=== PATIENT | male | born 1930 | race Hispanic/Latino ===

== ENCOUNTER 2017-06-13 18:01 | Inpatient (IN) | payer MEDICARE ==
[2017-06-13 18:01] VITALS: BMI 26.6
[2017-06-13] MEDS ORDERED: Ipratropium 0.02% Inhal Soln (0.5 mg/2.5 ml) UD IH STA (18:33)
[2017-06-13] MEDS ORDERED: Aspirin 325 mg EC Tablets PO STA (18:38)
[2017-06-13 18:45] LABS: BASO # 0.01 K/mm3 (0.0-2.0); BASO % 0.2 % (0.0-3.0); EOS # 0.2 (0.0-0.7); EOS % 4.3 % (1.5-5.0); GRAN # 3.12 (1.4-6.5); GRAN % 60.5 % (50.0-68.0); HEMATOCRIT 37.3 % (42.0-52.0); LYMPH # 1.2 (1.2-3.4); LYMPH % 24.1 % (22.0-35.0); MEAN CELL VOLUME 88.4 fl (80.0-105.0); MEAN CORPUSCULAR HEMOGLOBIN 29.4 pg (25.0-35.0); MEAN CORPUSCULAR HGB CONC 33.2 g/dl (31.0-37.0); MONO # 0.6 (0.1-0.6); MONO % 10.9 % (1.0-6.0); RED CELL DISTRIBUTION WIDTH 14.2 % (11.5-14.5); WHITE BLOOD COUNT 5.2 10^3/ul (4.5-11.0)
[2017-06-13 19:13] LABS: PARTIAL THROMBOPLASTIN TIME 48.3 Seconds (25.1-36.5)
[2017-06-13 19:17] LABS: INR 4.1 (0.93-1.08)
[2017-06-13 19:38] LABS: ALB/GLOB RATIO 1.2 (1.1-1.8); ALKALINE PHOSPHATASE 71 U/L (38-126); ALT/SGPT 27 U/L (7-56); AST/SGOT 20 U/L (17-59); BILIRUBIN,TOTAL 0.5 mg/dL (0.2-1.3); BLOOD UREA NITROGEN 25 mg/dL (7-21); CALCIUM 9.1 mg/dL (8.4-10.5); CARBON DIOXIDE 27 mmol/L (21-33); CHLORIDE 107 mmol/L (98-107); GFR AFRICAN-AMERICAN > 60; GLUCOSE,RANDOM 103 mg/dL (70-110); TOTAL PROTEIN 6.6 g/dL (5.8-8.3)
[2017-06-13 19:57] LABS: POTASSIUM 3.9 mmol/L (3.6-5.0); SODIUM 140 mmol/L (132-148)
[2017-06-13 20:00] LABS: TROPONIN I 0.13 ng/mL
[2017-06-13 20:11] LABS: PH,URINE 6.5 (4.7-8.0); URINE BILIRUBIN SMALL (NEGATIVE); URINE BLOOD LARGE (NEGATIVE); URINE GLUCOSE (UA) 250 mg/dL (NEGATIVE); URINE KETONE 15 mg/dL (NEGATIVE); URINE LEUKOCYTE ESTERASE MODERATE Leu/uL (NEGATIVE); URINE PROTEIN >=300 mg/dL (<30 mg/dL)
[2017-06-13 20:12] LABS: URINE APPEARANCE BLOODY (CLEAR); URINE COLOR DARK RED (YELLOW)
[2017-06-13 20:12] LABS: VENOUS BLOOD GAS BASE EXCESS 1.7 mmol/L (0.0-2.0); VENOUS BLOOD PH 7.35 (7.32-7.43)
[2017-06-13] MEDS ORDERED: Nitroglycerin 2% Ointment Foilpak UD TOP STA (20:23)
[2017-06-13 20:24] LABS: URINE RBC TNTC /hpf (0-2)
[2017-06-13 20:25] LABS: URINE BACTERIA MANY (NEG); URINE WBC TNTC /hpf (0-6)
--- NOTE | 2017-06-13 22:06 | ED PDOC ---
Arrival/HPI - General Chief Complaint: Chest Pain Time Seen by Provider: 06/13/17 18:33 Historian: Patient - History of Present Illness Narrative History of Present Illness (Text): 06/13/17 22:06 An 86 year old male, whose past medical history includes atrial fibrillation ( on Coumadin), hypertension, hyperlipidemia, and bph, presents to the emergency department complaining of chest pain that developed this morning. Patient reports left pectoral chest pain, non radiating. Reports to taking three Tylenol at home and called daughter this evening to bring him to the emergency department for worsening chest pain. Patient reports nausea and dizziness but denies vomiting or any other complaints at this time. Patient reports usual state of health about two weeks ago. PMD: Dr. Nazario Symptom Onset: Sudden Symptom Course: Unchanged Activities at Onset: Rest Context: Home Past Medical History - Provider Review Nursing Documentation Reviewed: Yes - Infectious Disease Hx of Infectious Diseases: None - Cardiac Hx Cardiac Disorders: Yes Hx Hypertension: Yes - Pulmonary Hx Respiratory Disorders: No - Neurological Hx Neurological Disorder: No - HEENT Hx HEENT Disorder: Yes Hx Cataracts: Yes (had surgery) Hx Deafness: Yes (bilat) Other/Comment: bilat hernia sx - Renal Hx Renal Disorder: No - Endocrine/Metabolic Hx Endocrine Disorders: No - Hematological/Oncological Hx Blood Disorders: No - Integumentary Hx Dermatological Disorder: No - Musculoskeletal/Rheumatological Hx Musculoskeletal Disorders: No Hx Falls: No - Gastrointestinal Hx Gastrointestinal Disorders: Yes Hx Gastroesophageal Reflux: Yes - Genitourinary/Gynecological Hx Genitourinary Disorders: Yes Hx Prostate Problems: Yes - Psychiatric Hx Psychophysiologic Disorder: No Hx Depression: No Hx Emotional Abuse: No Hx Physical Abuse: No Hx Substance Use: No - Surgical History Other/Comment: metal plate rt forearm 1959's - Suicidal Assessment Feels Threatened In Home Enviroment: No Family/Social History - Physician Review Nursing Documentation Reviewed: Yes Family/Social History: No Known Family HX Smoking Status: Never Smoked Hx Alcohol Use: No Hx Substance Use: No Hx Substance Use Treatment: No Allergies/Home Meds Allergies/Adverse Reactions: Allergies No Known Allergies Allergy (Verified 06/13/17 18:11) Home Medications: Home Meds Medication Instructions Recorded Confirmed Simvastatin 20 mg PO DAILY 05/02/12 09/10/16 Tamsulosin [Flomax] 0.4 mg PO DAILY 09/10/16 09/10/16 Cephalexin 250 mg PO TID 09/19/16 09/19/16 Digoxin (RENAL USE) 0.125 mg PO DAILY 09/19/16 09/19/16 Eliquis 5 mg pe PO BID 09/19/16 09/19/16 Lisinopril 20 mg PO DAILY 09/19/16 09/19/16 Metoprolol 100 mg PO BID 09/19/16 09/19/16 diltiaZEM CD 120 mg PO DAILY 09/19/16 09/19/16 metroNIDAZOLE 250 mg PO TID 09/19/16 09/19/16 Review of Systems - Physician Review All systems were reviewed & negative as marked: Yes - Review of Systems Constitutional: Normal Eyes: Normal ENT: Normal Respiratory: Normal Cardiovascular: Chest Pain Gastrointestinal: Nausea. absent: Vomiting Genitourinary Male: Normal Musculoskeletal: Normal Skin: Normal Neurological: Dizziness Endocrine: Normal Hemo/Lymphatic: Normal Psychiatric: Normal Physical Exam Vital Signs Reviewed: Yes Vital Signs Temp Pulse Pulse Resp BP BP Pulse Ox 06/13/17 22:57 78 16 135/93 H 99 06/13/17 22:44 80 17 130/78 98 06/13/17 21:00 70 17 98 06/13/17 19:15 74 17 145/80 98 06/13/17 19:03 71 117/66 06/13/17 18:17 98.0 F 76 17 148/79 98 Temperature: Afebrile Blood Pressure: Normal Pulse: Regular Respiratory Rate: Normal Appearance: Positive for: Well-Appearing, Non-Toxic, Comfortable Pain Distress: None Mental Status: Positive for: Alert and Oriented X 3 - Systems Exam Head: Present: Atraumatic, Normocephalic Pupils: Present: PERRL Extroacular Muscles: Present: EOMI Conjunctiva: Present: Normal Mouth: Present: Moist Mucous Membranes Neck: Present: Normal Range of Motion Respiratory/Chest: Present: Clear to Auscultation, Good Air Exchange. No: Respiratory Distress, Accessory Muscle Use Cardiovascular: Present: Regular Rate and Rhythm, Normal S1, S2. No: Murmurs Abdomen: Present: Normal Bowel Sounds. No: Tenderness, Distention, Peritoneal Signs Back: Present: Normal Inspection Upper Extremity: Present: Normal Inspection. No: Cyanosis, Edema Lower Extremity: Present: Normal Inspection. No: Edema Neurological: Present: GCS=15, CN II-XII Intact, Speech Normal Skin: Present: Warm, Dry, Normal Color. No: Rashes Psychiatric: Present: Alert, Oriented x 3, Normal Insight, Normal Concentration Medical Decision Making ED Course and Treatment: 06/13/17 22:04 Impression: An 86 year old male with chest pain. Plan: -- EKG -- chest xray -- labs -- Urinalysis -- Zofran, Ecotrin, Atrovent -- Reassess and disposition Prior Visits: Notes and results from previous visits were reviewed. Patient last reported to the emergency department on 09/10/16 for evaluation of midsternal chest pain and lower abdominal discomfort. Progress Notes: EKG: Ordered, reviewed, and independently interpreted the EKG. Rate : ventricular response of 83 BPM Rhythm : a fib Interpretation : right bundle branch block Chest xray: unremarkable, no active airway disease, interpreted by me. Spoke with Dr. Nazario , who agrees with plan to admit patient to telemetry. - Lab Interpretations Microbiology Results: Microbiology Results 06/13/17 19:40 Blood-Venous Blood Culture - Preliminary NO GROWTH AFTER 48 HOURS 06/13/17 19:10 Blood-Venous Blood Culture - Preliminary NO GROWTH AFTER 48 HOURS 06/13/17 19:40 Urine,Clean Catch Urine Culture - Preliminary Gram Positive Cocci Lab Results: 06/13/17 18:30 06/13/17 18:30 Lab Results 06/13/17 19:45: pO2 24 L, VBG pH 7.35, VBG pCO2 51.0, VBG HCO3 28.2 H, VBG Total CO2 29.8 H, VBG O2 Sat (Calc) 41.9, VBG Base Excess 1.7, VBG Potassium 4.3 , Glucose 102, Lactate 1.2, FiO2 21.0, Sodium 139.0, Chloride 107.0, Venous Blood Potassium 4.3 06/13/17 19:40: Urine Color Dark red, Urine Appearance Bloody, Urine pH 6.5, Ur Specific [place] 1.020, Urine Protein >=300 H, Urine Glucose (UA) 250 H, Urine Ketones 15 H, Urine Blood Large H, Urine Nitrate Positive H, Urine Bilirubin Small H, Urine Urobilinogen 2.0 H, Ur Leukocyte Esterase Moderate H, Urine RBC Tntc, Urine WBC Tntc, Urine Bacteria Many 06/13/17 18:30: Digoxin 1.0 06/13/17 18:30: Sodium 140, Potassium 3.9, Chloride 107, Carbon Dioxide 27, Anion Gap 10, BUN 25 H, Creatinine 1.3, Est GFR ( Amer) > 60, Est GFR ( Non-Af Amer) 53, Random Glucose 103, Calcium 9.1, Total Bilirubin 0.5, AST 20, ALT 27, Alkaline Phosphatase 71, Lactate Dehydrogenase 400, Total Creatine Kinase 46, Troponin I 0.13 H* D, NT-Pro-B Natriuret Pep 890 H, Total Protein 6.6 , Albumin 3.6, Globulin 3.0, Albumin/Globulin Ratio 1.2 06/13/17 18:30: PT 46.0 H, INR 4.10 H*, APTT 48.3 H 06/13/17 18:30: WBC 5.2 D, RBC 4.22, Hgb 12.4 L, Hct 37.3 L, MCV 88.4, MCH 29.4 , MCHC 33.2, RDW 14.2, Plt Count 180, MPV 10.0, Gran % 60.5, Lymph % (Auto) 24.1 , [place] % (Auto) 10.9 H, Eos % (Auto) 4.3, Baso % (Auto) 0.2, Gran # 3.12, Lymph # 1.2, [place] # 0.6, Eos # 0.2, Baso # 0.01 I have reviewed the lab results: Yes - RAD Interpretation Radiology Orders: 06/13/17 18:33 CHEST PORTABLE [RAD] Stat - EKG Interpretation Interpreted by ED Physician: Yes Type: 12 lead EKG - Medication Orders Current Medication Orders: Acetaminophen (Tylenol 325mg Tab) 650 mg PO Q4H PRN PRN Reason: Headache Last Admin: 06/15/17 20:37 Dose: 650 mg Re-Assess: MAR Pain/Vitals Document 06/15/17 21:37 KTR (Rec: 06/16/17 07:55 KTR [facility] [id number] Pain Reassessment Is This A Pain ReAssessment? Yes Sleep Is patient sleeping during reassessment? Yes Atorvastatin Calcium (Lipitor) 20 mg PO DIN SUE Last Admin: 06/15/17 17:25 Dose: 20 mg Digoxin (Lanoxin) 0.125 mg PO 1400 [facility] Last Admin: 06/15/17 13:25 Dose: 0.125 mg MAR Apical Pulse Rate Document 06/15/17 13:25 KMS (Rec: 06/15/17 13:25 KMS [place] [id number]) Apical Pulse Rate Apical Pulse Rate (60-90 beats/min) 78 Diltiazem HCl (Cardizem Cd) 120 mg PO DAILY [facility] Last Admin: 06/15/17 10:19 Dose: 120 mg MAR Pulse and Blood Pressure Document 06/15/17 10:19 KMS (Rec: 06/15/17 10:19 KMS [place] [id number]) Pulse Pulse Rate (60-90) 83 Blood Pressure Blood Pressure (100/60-150/90) 114/73 Lisinopril (Zestril) 20 mg PO DAILY [facility] Last Admin: 06/15/17 10:18 Dose: 20 mg MAR Pulse and Blood Pressure Document 06/15/17 10:18 KMS (Rec: 06/15/17 10:19 KMS [place] [id number]) Pulse Pulse Rate (60-90) 83 Blood Pressure Blood Pressure (100/60-150/90) 114/73 Metoprolol Tartrate (Lopressor) 100 mg PO BID [facility] Last Admin: 06/15/17 17:11 Dose: 100 mg MAR Pulse and Blood Pressure Document 06/15/17 17:11 KMS (Rec: 06/15/17 17:15 KMS [place] [id number]) Pulse Pulse Rate (60-90) 79 Blood Pressure Blood Pressure (100/60-150/90) 131/79 Nitroglycerin (Nitro-Bid 2% Oint) 1 ea TOP Q6 [facility] Last Admin: 06/16/17 07:49 Dose: Not Given Non-Admin Reason: BP Parameters Not Met Pantoprazole Sodium (Protonix Ec Tab) 40 mg PO 0600 [facility] Last Admin: 06/16/17 05:02 Dose: Not Given Non-Admin Reason: NPO Trimethoprim/Sulfamethoxazole (Bactrim Ds Tab) 1 tab PO BID [facility] PRN Reason: Protocol Last Admin: 06/15/17 17:25 Dose: 1 tab Discontinued Medications Acetaminophen (Tylenol 325mg Tab) 650 mg PO ONCE ONE Stop: 06/14/17 02:42 Last Admin: 06/14/17 02:56 Dose: 650 mg MAR Pain/Vitals Document 06/14/17 02:56 TTC (Rec: 06/14/17 02:57 [facility] [id number]) Pain Reassessment Is This A Pain ReAssessment? No Sleep Is patient sleeping during reassessment? Yes Aspirin (Ecotrin) 325 mg PO STAT STA Stop: 06/13/17 18:39 Last Admin: 06/13/17 19:14 Dose: 325 mg Ceftriaxone Sodium (Rocephin 1 Gram Ivpb) 1 gm in 100 mls @ 200 mls/hr IVPB STAT STA PRN Reason: Protocol Stop: 06/14/17 03:15 Last Admin: 06/14/17 03:15 Dose: 200 mls/hr eMAR Start Stop Document 06/14/17 03:15 TTC (Rec: 06/14/17 06:03 [facility] [id number]) Intravenous Solution Start Date 06/14/17 Start Time 03:15 End Date 06/14/17 End time 04:15 Total Infusion Time 60 Ipratropium [place] (Atrovent) 0.5 mg IH STAT STA Stop: 06/13/17 18:34 Last Admin: 06/13/17 19:14 Dose: 0.5 mg Nitroglycerin (Nitro-Bid 2% Oint) 1 ea TOP STAT STA Stop: 06/13/17 20:24 Last Admin: 06/13/17 22:40 Dose: Nitroglycerin (Nitrostat Sl Tab) 0.4 mg SL Q5M PRN PRN Reason: chest pain Stop: 06/14/17 04:26 Ondansetron HCl (Zofran Inj) 4 mg IVP STAT STA Stop: 06/13/17 19:27 Last Admin: 06/13/17 19:51 Dose: 4 mg IVP Administration Document 06/13/17 19:51 SF (Rec: 06/13/17 19:51 SF [facility] [id number]) Charges for Administration # of IVP Administrations 1 - Scribe Statement The provider has reviewed the documentation as recorded by the Aissatou Almanza Provider Scribe Attestation: All medical record entries made by the Scribe were at my direction and personally dictated by me. I have reviewed the chart and agree that the record accurately reflects my personal performance of the history, physical exam, medical decision making, and the department course for this patient. I have also personally directed, reviewed, and agree with the discharge instructions and disposition. Disposition/Present on Arrival - Present on Arrival Any Indicators Present on Arrival: No History of DVT/PE: No History of Uncontrolled Diabetes: No Urinary Catheter: Yes (inserted in ed) History of Decub. Ulcer: No History Surgical Site Infection Following: None - Disposition Have Diagnosis and Disposition been Completed?: Yes Diagnosis: Chest pain Disposition: HOSPITALIZED Disposition Time: 21:35 Patient Plan: Admission Condition: FAIR
--- NOTE | 2017-06-13 23:51 | CP.PCM.CON ---
<David Encinas - Last Filed: 06/13/17 23:20> History of Present Illness - History of Present Illness History of Present Illness: David Encinas DO PGY1 - ICU Consult Note for Dr. Linares Consultation for NSTEMI 86 yo M with PMH of atrial fibrillation, hypertension, hyperlipidemia, depression, NSTEMI, and BPH, who initially presented to the ER complaining of chest pain. His pain started yesterday, while sitting at home. Pain started gradually, in left chest, got progressively worse, did not radiate, associated with naunausea, described as deep aching; no particular exacerbating or remitting factors. Pain improved slightly after receiving some treatment in the ER. He reports that he has had this pain before, which he was treated for in the hospital "a couple years ago". He denies vomiting, SOB, dyspnea on exertion , neck pain, arm pain, headache, palpitations, cough. On chart review, patient was admitted 9 months ago and was found to have new onset atrial fibrillation and was treated for NSTEMI PMH: As above PSH: ORIF R wrist Soc: Nonsmoker; Drinks 2-4 drinks weekly, prior history of alcohol abuse; denies illicits FHx: Patient does not recall Home meds: Patient did not recall the names of the medicines he is on, but when prompted about warfarin, he did confirm that, though did not recall the dose or frequency. All: NKDA ROS: 12 point ROS negative except as in HPI Past Patient History - Infectious Disease Hx of Infectious Diseases: None - Past Social History Smoking Status: Never Smoked - CARDIAC Hx Cardiac Disorders: Yes Hx Hypertension: Yes - PULMONARY Hx Respiratory Disorders: No - NEUROLOGICAL Hx Neurological Disorder: No - HEENT Hx HEENT Problems: Yes Hx Cataracts: Yes (had surgery) Hx Deafness: Yes (bilat) Other/Comment: bilat hernia sx - RENAL Hx Chronic Kidney Disease: No - ENDOCRINE/METABOLIC Hx Endocrine Disorders: No - HEMATOLOGICAL/ONCOLOGICAL Hx Blood Disorders: No - INTEGUMENTARY Hx Dermatological Problems: No - MUSCULOSKELETAL/RHEUMATOLOGICAL Hx Musculoskeletal Disorders: No Hx Falls: No - GASTROINTESTINAL Hx Gastrointestinal Disorders: Yes Hx Gastroesophageal Reflux: Yes - GENITOURINARY/GYNECOLOGICAL Hx Genitourinary Disorders: Yes Hx Prostate Problems: Yes - PSYCHIATRIC Hx Psychophysiologic Disorder: No Hx Depression: No Hx Emotional Abuse: No Hx Physical Abuse: No Hx Substance Use: No - SURGICAL HISTORY Other/Comment: metal plate rt forearm 1960's Meds Allergies/Adverse Reactions: Allergies Allergy/AdvReac Type Severity Reaction Status Date / Time No Known Allergies Allergy Verified 06/13/17 18:11 Physical Exam - Constitutional Appears: Non-toxic, No Acute Distress, Chronically Ill - Head Exam Head Exam: ATRAUMATIC, NORMOCEPHALIC - Eye Exam Eye Exam: EOMI, Normal appearance - ENT Exam ENT Exam: Mucous Membranes Moist - Neck Exam Neck exam: Positive for: Normal Inspection - Respiratory Exam Respiratory Exam: Clear to Auscultation Bilateral, NORMAL BREATHING PATTERN - Cardiovascular Exam Cardiovascular Exam: Irregular Rhythm, +S1, +S2. absent: Bradycardia, Tachycardia, JVD Additional comments: No point tenderness on chest wall - GI/Abdominal Exam GI & Abdominal Exam: Normal Bowel Sounds, Soft. absent: Tenderness - Extremities Exam Extremities exam: Positive for: normal capillary refill, pedal pulses present. Negative for: calf tenderness, pedal edema - Neurological Exam Neurological exam: Alert, Oriented x3 - Psychiatric Exam Psychiatric exam: Normal Affect, Normal Mood - Skin Skin Exam: Dry, Intact Results - Vital Signs Recent Vital Signs: Last Vital Signs Temp 98.0 F 06/13/17 18:17 Pulse 78 06/13/17 22:57 Resp 16 06/13/17 22:57 BP 135/93 H 06/13/17 22:57 Pulse Ox 99 06/13/17 22:57 - Labs Result Diagrams: 06/13/17 18:30 06/13/17 18:30 Assessment & Plan - Assessment and Plan (Free Text) Assessment: 86 yo M with PMH of atrial fibrillation (rate controlled, on coumadin), hypertension, hyperlipidemia, depression, NSTEMI, and BPH, who initially presented to the ER complaining of chest pain. Noted to have positive troponin in ER, without EKG changes compared to his baseline, likely NSTEMI. Patient discussed with Dr. Ross, cardiology technology applications teacher. Patient is currently hemodynamically stable, with improvement in chest pain. Recommend admission to telemetry, with medical management per primary and credit risk review officer. INR elevated, likely supratherapeutic on coumadin, though unable to confirm patient's prescribed dose at this time. Recommend serial troponins, repeat EKG, resume beta blockers, ACEi, statin. Patient also noted to have UTI on UA in ER; recommend broad spectrum antibiotic, with subsequent culture and sensitivity to narrow coverage. Resumed CCB for atrial fibrillation rate control. Please reconsult if patient's clinical status changes or worsens, requiring higher level of care Patient seen, discussed, and reviewed with attending. <Lori Linares - Last Filed: 06/14/17 05:52> Results - Vital Signs Recent Vital Signs: Last Vital Signs Temp 98.0 F 06/13/17 18:17 Pulse 78 06/13/17 22:57 Resp 18 06/14/17 00:42 BP 135/93 H 06/13/17 22:57 Pulse Ox 99 06/13/17 22:57 - Labs Result Diagrams: 06/14/17 03:30 06/14/17 03:30 Attending/Attestation - Attestation I have personally seen and examined this patient.: Yes I have fully participated in the care of the patient.: Yes I have reviewed all pertinent clinical information: Yes Notes (Text): 06/14/17 04:01 Patient was seen when he was in the ER . Discussed with , not . Agree with history, physical examination, assessment and plan.
[2017-06-14] MEDS ORDERED: cefTRIAXone 1 gm 1 GM/100 ML BAG IVPB STA (02:46)
[2017-06-14 04:08] LABS: BASO # 0.01 K/mm3 (0.0-2.0); BASO % 0.2 % (0.0-3.0); EOS # 0.3 (0.0-0.7); EOS % 6.5 % (1.5-5.0); GRAN # 2.29 (1.4-6.5); GRAN % 53.2 % (50.0-68.0); HEMATOCRIT 35.9 % (42.0-52.0); LYMPH # 1.2 (1.2-3.4); LYMPH % 27.1 % (22.0-35.0); MEAN CELL VOLUME 87.8 fl (80.0-105.0); MEAN CORPUSCULAR HEMOGLOBIN 28.9 pg (25.0-35.0); MEAN CORPUSCULAR HGB CONC 32.9 g/dl (31.0-37.0); MONO # 0.6 (0.1-0.6); RED CELL DISTRIBUTION WIDTH 14.2 % (11.5-14.5); WHITE BLOOD COUNT 4.3 10^3/ul (4.5-11.0)
[2017-06-14 04:15] LABS: TROPONIN I 0.09 ng/mL
[2017-06-14 04:17] LABS: ALB/GLOB RATIO 1.2 (1.1-1.8); ALKALINE PHOSPHATASE 56 U/L (38-126); ALT/SGPT 37 U/L (7-56); AST/SGOT 32 U/L (17-59); BILIRUBIN,TOTAL 0.5 mg/dL (0.2-1.3); BLOOD UREA NITROGEN 23 mg/dL (7-21); CALCIUM 8.8 mg/dL (8.4-10.5); CARBON DIOXIDE 27 mmol/L (21-33); CHLORIDE 107 mmol/L (98-107); GFR AFRICAN-AMERICAN > 60; GLUCOSE,RANDOM 92 mg/dL (70-110); SODIUM 139 mmol/L (132-148); TOTAL PROTEIN 6.2 g/dL (5.8-8.3)
[2017-06-14] MEDS: Pantoprazole 40 mg EC Tab PO SCH (06:03)
--- NOTE | 2017-06-14 08:21 | RAD ---
HISTORY: chest pain COMPARISON: Portable chest 09/10/2016. FINDINGS: LUNGS: No active pulmonary disease. Improved history volume is appreciated bilaterally. PLEURA: No significant pleural effusion identified, no pneumothorax apparent. CARDIOVASCULAR: Normal. OSSEOUS STRUCTURES: No significant abnormalities. VISUALIZED UPPER ABDOMEN: Normal. OTHER FINDINGS: None. IMPRESSION: No interval acute cardiopulmonary disease appreciated.
[2017-06-14] MEDS: diltiaZEM 120 mg/24 Hours CD Cap PO SCH (11:22)
--- NOTE | 2017-06-14 12:41 | PN ---
DATE: DAILY PROGRESS NOTE SUBJECTIVE: The patient is an 86-year-old male who was admitted yesterday with acute coronary syndrome, non-Q wave myocardial infarction, and chest pain. He is known to have history of atrial fibrillation, hypertension, hyperlipidemia, and benign prostatic hypertrophy. His troponin level on admission was 0.13, this morning it is down to 0.09. When seen today, he is resting comfortably; however, he does admit to some continued chest pain. It is constant, non-radiating over the left anterior chest. He denies shortness of breath and denies nausea. However, he was not hungry and did not eat much of his breakfast this morning. PHYSICAL EXAMINATION: LUNGS: His lungs are clear anteriorly. HEART: Irregularly irregular. LABORATORY DATA: Other laboratories revealed the white blood cell count to be 4.3 and hemoglobin and hematocrit are 11.8 and 35.9 respectively. Urine culture has been ordered as well as blood cultures, results are still pending. ASSESSMENT AND PLAN: As per the nurse staff, the patient did have a pause slightly longer than 2 seconds earlier today. His financial examiner, Dr. Cornejo and Dr. Marroquin are aware. At this point, I will begin intravenous Bactrim for his urinary tract infection and I will also start 1 inch of nitroglycerin paste for the continued chest pain. We will continue to follow the patient closely. Manuel Nazario MD
--- NOTE | 2017-06-14 13:41 | HP ---
HISTORY OF PRESENT ILLNESS: The patient is an 86-year-old male who presents to the emergency room complaining of chest pain. The chest pain onset was at rest earlier in the morning. It was nonradiating, described more as a heaviness or pressure. He eventually presented to the emergency room to be evaluated and admitted. He admits to associated nausea and dizziness. Denies vomiting. Denies diaphoresis. PAST MEDICAL HISTORY: The patient is known to have a past medical history positive for atrial fibrillation, hypertension, hyperlipidemia, and benign prostatic hypertrophy. He is status post cataract surgery. SOCIAL HISTORY: He never smoked. He is a nonalcoholic drinker. ALLERGIES: HE HAS NO KNOWN MEDICAL ALLERGIES. MEDICATIONS: At the time of admission, his medications include simvastatin 20 mg, Flomax 0.4 mg, digoxin 0.125 mg, Eliquis 5 mg twice a day, lisinopril 20 mg, metoprolol 100 mg twice a day, diltiazem 120 mg and metronidazole 250 mg three times a day. REVIEW OF SYSTEMS: Positive for gastroesophageal reflux disease and presbycusis. PHYSICAL EXAMINATION: HEAD, EYES, EARS, NOSE AND THROAT: Unremarkable. NECK: Supple with no lymphadenopathy. No goiter. LUNGS: Clear to auscultation and percussion. HEART: Regular. No murmurs are appreciated. ABDOMEN: Soft,and nontender with normal bowel sounds. EXTREMITIES: Free of cyanosis, clubbing or edema. NEUROLOGIC: The patient is awake, alert and oriented with no focal neurological signs. LABORATORY STUDIES: Shows white blood cell count to be 5.2, hemoglobin and hematocrit are 12.4 and 37.3 respectively, platelet count is 180. Sodium is 140, potassium is 3.9, blood urea nitrogen is 25, creatinine is 1.3, nonfasting glucose is 103. EKG shows atrial fibrillation with a right bundle-branch block and ventricular rate of 83 beats per minute. Chest x-ray shows no acute disease. Other laboratory studies showed urine to be positive for a urinary tract infection with leukocyte esterase positive. Red blood cells and white blood cells are too numerous to count and many bacteria. His troponins are elevated at 0.13. BNP is mildly elevated at 890. His PT, INR is elevated at 4.10. PLAN: So the patient is admitted with diagnosis of acute coronary syndrome, non-Q wave myocardial infarction, urinary tract infection, history of atrial fibrillation. Consultation with Dr. Marroquin, his thread tool grinder set up operator is called. Case to be discussed with Cardiology. The patient will be followed closely. The patient is restarted on his diltiazem, digoxin, atorvastatin, metoprolol, pantoprazole and lisinopril. Manuel Nazario MD
[2017-06-14] MEDS: Nitroglycerin 2% Ointment Foilpak UD TOP SCH ×2 (13:46→17:58)
[2017-06-14] MEDS: Tmp-Smz 800 mg-160 mg DS Tab PO SCH ×2 (13:46→17:58)
[2017-06-14] MEDS: Digoxin 125 mcg (0.125 mg) Tab PO SCH (13:46)
--- NOTE | 2017-06-14 17:19 | CON ---
DATE: 06/14/2017 INDICATIONS: Chest pain, borderline troponin. HISTORY OF PRESENT ILLNESS: This is an 86-year-old man, known to me from prior admissions, admitted with chest pain. It began at home and lasted several hours. It got worse with nausea. He came to the emergency room and was admitted. Chest pain has resolved. This morning, he is free of symptoms without chest pain, shortness of breath, orthopnea, PND, syncope, presyncope, lightheadedness, dizziness, vertigo, palpitations, edema, claudication, fever, chills, cough, sputum production, hemoptysis, abdominal pain, vomiting, diarrhea, constipation, or melena. PAST MEDICAL HISTORY: Notable for paroxysmal atrial fibrillation, which developed during an admission in August of this year. At that time, he presented with chest pain and had mildly elevated troponin consistent with NSTEMI. He has a history of hypertension, hyperlipidemia, cataracts, diminished hearing, GERD, BPH, urinary retention, depression, ORIF right wrist, gallstones, pancreatic cyst, history of alcohol use. An echocardiogram during the August admission revealed normal LV function with aortic sclerosis verus mild aortic stenosis. MEDICATIONS AT THE TIME OF ADMISSION: Include digoxin, Eliquis, lisinopril, metoprolol, diltiazem, metronidazole, Flomax, simvastatin. ALLERGIES: THERE ARE NO KNOWN MEDICATION ALLERGIES. FAMILY HISTORY: Noncontributory. REVIEW OF SYSTEMS: A 10-point review of systems is otherwise unremarkable. SOCIAL HISTORY: He no longer smokes. He no longer drinks alcohol. He lives at home. He is ambulatory but limited. PHYSICAL EXAMINATION: GENERAL: He is a well-developed elderly male, lying in bed on 3R, in no acute distress. VITAL SIGNS: He has an atrial fibrillation at 76 beats per minute. He is afebrile. Blood pressure 148/78, respirations 18, O2 sat 99% to 100% on room air and nasal cannula. HEENT AND NECK:: Reveals no neck vein distention, thyromegaly, or carotid bruits. Mucous membranes are moist. Conjunctivae are pink. Neck is supple. LUNGS: Lung hernandez scattered rhonchi. HEART: Revealed an irregular rhythm. Soft systolic murmur in the aortic space and along the left sternal border. ABDOMEN: Soft. Bowel sounds are present. No mass, organomegaly, tenderness, rebound, or guarding. No CVA tenderness. No palpable abdominal aortic aneurysm. EXTREMITIES: Revealed no cyanosis, clubbing or edema. NEUROLOGIC: Awake, alert and oriented; diminished hearing. SKIN: Warm and dry. No rash or cellulitis. PSYCHIATRIC: Normal as to mood and affect. LABORATORY AND IMAGING: A chest x-ray is a portable study shows no acute cardiopulmonary disease appreciated. An EKG is not available at this time. I will track it down. Apparently, it showed no acute changes and atrial fibrillation. White count 5200, repeat 4300; hemoglobin 11.8, hematocrit 35.9, platelet count normal. PT 46, INR 4.1, and PTT 48.3. Blood gases are noted. Electrolytes, BUN, creatinine, blood sugar, LFTs were all unremarkable. CK 46. First troponin 0.13, second 0.09. BNP 890. Urinalysis abnormal. Digoxin 1.0. IMPRESSION: Mr. Ambrose is an 86-year-old man, admitted with chest pain, mildly abnormal troponin initially, and chronic atrial fibrillation with a history of an non-ST elevation myocardial infarction in 08/2016. At which time, echocardiogram demonstrated normal left ventricular function with an aortic sclerosis versus mild aortic stenosis. PLAN: At this time, I will review his old records and repeat a troponin level this morning. I will track down his EKG. I will continue his usual medications. He got aspirin. I would continue digoxin, Eliquis, lisinopril, metoprolol, diltiazem, and simvastatin. I will clarify his anticoagulation regimen since his INR is coagulopathic, perhaps he is on warfarin at home rather than Eliquis. I will follow along with you. I will make additional recommendations based on his clinical course. Babak Cornejo MD [facility]
[2017-06-15] MEDS: Nitroglycerin 2% Ointment Foilpak UD TOP SCH ×4 (00:23→17:11)
[2017-06-15] MEDS: Pantoprazole 40 mg EC Tab PO SCH (06:51)
[2017-06-15 07:21] LABS: INR 2.57 (0.93-1.08)
--- NOTE | 2017-06-15 09:50 | CARD ---
APPROVED REPORT EKG Measurement Heart [id number] <Conclusion> Atrial fibrillation with rapid ventricular response RBBB LAD NSSTW changes No change
[2017-06-15] MEDS: Tmp-Smz 800 mg-160 mg DS Tab PO SCH ×2 (10:18→17:25)
[2017-06-15] MEDS: diltiaZEM 120 mg/24 Hours CD Cap PO SCH (10:19)
[2017-06-15] MEDS: Digoxin 125 mcg (0.125 mg) Tab PO SCH (13:25)
[2017-06-16] MEDS: Nitroglycerin 2% Ointment Foilpak UD TOP SCH ×4 (00:33→17:17)
[2017-06-16] MEDS: Pantoprazole 40 mg EC Tab PO SCH (05:02)
[2017-06-16] MEDS ORDERED: Aminophylline 25 mg/ml Inj ONE (08:38)
--- NOTE | 2017-06-16 13:13 | PN ---
DATE: 06/16/2017 SUBJECTIVE: The patient is seen lying in bed, on telemetry. He is comfortable at the present time. He had mild chest discomfort this morning. MEDICATIONS: His current medications include Bactrim, diltiazem 120 mg daily, digoxin 0.125 mg daily, Lipitor 20 mg daily, metoprolol 100 mg b.i.d., Protonix and Zestril 20 mg daily. OBJECTIVE: GENERAL: He is an elderly man who appears comfortable at the present time. VITAL SIGNS: His blood pressure is 102/50 with a pulse of 50 and sinus, respirations are 14. He had previously been in atrial fibrillation. HEENT: No JVD. CHEST: Few scattered rhonchi. HEART: PMI in normal position. Systolic murmur is present in left sternal border. ABDOMEN: Soft, nontender with bowel sounds. EXTREMITIES: No edema. DIAGNOSTIC DATA: His last INR is 2.51, repeat is pending. IMPRESSION: 1. Recent chest pain. 2. Paroxysmal atrial fibrillation. 3. History of hypertension and hyperlipidemia. 4. Mild aortic stenosis. RECOMMENDATIONS: His current medications will be continued at this time. A nuclear stress test is planned for this morning. Further recommendations will be based upon those results. If medical therapy is planned, resumption of anticoagulant therapy would be advisable given paroxysmal atrial fibrillation. We will follow him as needed. Randy Marroquin MD MTDD
[2017-06-16] MEDS: Tmp-Smz 800 mg-160 mg DS Tab PO SCH ×2 (14:09→17:17)
[2017-06-16] MEDS: Digoxin 125 mcg (0.125 mg) Tab PO SCH (14:10)
[2017-06-16] MEDS: diltiaZEM 120 mg/24 Hours CD Cap PO SCH (14:10)
[2017-06-16 14:11] VITALS: PULSE 72
--- NOTE | 2017-06-16 15:53 | CARD ---
APPROVED REPORT Protocol: LEXISCAN Test Type: Lexiscan Sestamibi Stress Test Attending Physician: Dr. Randy Marroquin Referring Physician: Dr. Bin Nazario Test Indications: Chest Pain Height:5 ft 7 in Weight:155lbs Medications: tylenol, lipitor, digoxin, cardizem, zestril, lopressor, nitro-paste, pantoprozole, bactrim Medical History: 86 year old male with a h/o a-fib, htn, high cholesterol, gerd and prostate problems Target HR: 136 bpm Resting ECG: right bundle branch block Resting Heart Rate: 54 bpm Resting Blood Pressure: 108/56mmHg Submaximum (85%): 116 bpm PROCEDURE Pharmacologic stress testing was performed using 0.4mg per 5ml of regadenoson given intravenously over 7-10 seconds. POST EXERCISE Reason for Termination: Protocol completed Target HR: No Max HR: 53 bpm 50% of Maximum Predicted HR: 136 bpm Exercise duration: 00:31 min:sec, 0 Stage Exercise capacity: 1.0METs Max Blood Pressure: 112/64mmHg Blood Pressure response to exercise: normal resting BP - appropriate response Heart Rate response to exercise: appropriate Chest Pain: No, none Angina index: 0 Arrhythmia: No, none ST Change: No, none Deviation: 0 mm TEST SUMMARY [id number]. INFUSIONDOSE 100:[id number]/.0. [id number]. INTERPRETATION Stress EKG Conclusion: Normal infusion phase of Lexiscan NST. Signed by Randy Marorquin Electronically Approved: 06/16/2017 14:07:52 EXAM: Myocardial Perfusion REST/STRESS Stress Test Type: Pharmacologic Imaging Protocol Rest Spect myocardial perfusion imaging was performed in supine position 45 minutes following the injection of 10.3 mCi of Tc-99 Myoview. At peak stress, the patient was injected intravenously with 30.9mCi of Tc-99 tetrofosmin after an infusion time of 0 minutes and 10 seconds. Gated Stress Spect was performed 65 minutes after intravenous Tc-99 Myoview injection. The images were gated to evaluate regional wall motion and calculate ventricular ejection fraction.Images were reconstructed using backfilter projection method in short horizontal and verticle long axis. Spect slices were generated. LV Perfusion The quality of the study is good. The left ventricle is normal in size. The right ventricle is unremarkable. The lung uptake is within normal limits. The distribution of tracer reveals an area of moderately decreased perfusion in the apical and inferior huff on the stress studyy. The remainder of the LV myocardium is unremarkable. The rest myocardial perfusion study shows improvement of the apical defect and no signifiicant change in the inferior defect. Wall Motion Wall motion study shows good contractility of the left ventricle. LVEF =52%. Conclusion 1. Probably abnormal SPECT myocardial perfusion study. 2. Partially reversible, small, apical defect is suspicious of ischemia. 3. Fixed, inferior defect is most liklely due to diaphragmatic attenuation. 4. Normal gated wall motion of the left ventrcle.
[2017-06-16 23:10] VITALS: RESP 20
[2017-06-17] MEDS: Nitroglycerin 2% Ointment Foilpak UD TOP SCH ×3 (01:53→11:32)
[2017-06-17] MEDS: Pantoprazole 40 mg EC Tab PO SCH (06:07)
[2017-06-17 06:40] VITALS: BP 135/71; PULSE 56; TEMP 97.7; O2SAT 94
--- NOTE | 2017-06-17 07:00 | CP.PCM.PN ---
Subjective - Date & Time of Evaluation Date of Evaluation: 06/15/17 Time of Evaluation: 07:00 - Subjective Subjective: Stable on 2R. No CP or SOB. V/S noted. AF with mod. VR. A few 2.0 - 2.5 sec. pauses noted. PE: Lungs: clear Cor.: irreg S1S2 Abd.: soft Ext.: no edema Neuro.; alert Labs noted: INR today 2.57, Trops: 0.13, 0.09, 0.06 ECG 06/14: AF, RBBB, LAHB, NSSTW changes No change Objective - Vital Signs/Intake and Output Vital Signs (last 24 hours): Temp Pulse Resp BP Pulse Ox 97.7 F 62 19 120/74 95 06/15/17 06:00 06/15/17 06:00 06/15/17 06:00 06/15/17 06:00 06/15/17 06:00 Intake and Output: 06/15/17 06/15/17 06:59 18:59 Intake Total 0 Output Total 300 Balance -300 - Medications Medications: Current Medications Acetaminophen (Tylenol 325mg Tab) 650 mg PO Q4H PRN PRN Reason: Headache Last Admin: 06/14/17 13:46 Dose: 650 mg Atorvastatin Calcium (Lipitor) 20 mg PO DIN [facility] Last Admin: 06/14/17 17:58 Dose: 20 mg Digoxin (Lanoxin) 0.125 mg PO 1400 [facility] Last Admin: 06/14/17 13:46 Dose: 0.125 mg Diltiazem HCl (Cardizem Cd) 120 mg PO DAILY [facility] Last Admin: 06/14/17 11:22 Dose: 120 mg Lisinopril (Zestril) 20 mg PO DAILY [facility] Last Admin: 06/14/17 11:22 Dose: 20 mg Metoprolol Tartrate (Lopressor) 100 mg PO BID [facility] Last Admin: 06/14/17 17:58 Dose: 100 mg Nitroglycerin (Nitro-Bid 2% Oint) 1 ea TOP Q6 [facility] Last Admin: 06/15/17 06:51 Dose: 1 ea Pantoprazole Sodium (Protonix Ec Tab) 40 mg PO 0600 [facility] Last Admin: 06/15/17 06:51 Dose: 40 mg Trimethoprim/Sulfamethoxazole (Bactrim Ds Tab) 1 tab PO BID [facility] PRN Reason: Protocol Last Admin: 06/14/17 17:58 Dose: 1 tab - Labs Labs: 06/14/17 03:30 06/14/17 03:30 PT 28.8 SECONDS (9.4-12.5) H 06/15/17 06:25 INR 2.57 (0.93-1.08) H 06/15/17 06:25 APTT 48.3 Seconds (25.1-36.5) H 06/13/17 18:30 Assessment and Plan - Assessment and Plan (Free Text) Assessment: CP with min. elevated initial trop AF UTI H/O possible NSTEMI 09/11 Echo 09/11: Nl LV fx HLD GERD BPH Diminished hearing Depression Fx. right wrist Gall Stones Pancreatic cyst H/O remote ETOH Plan: Clarify A/C at home in view of elevated INR. Nuclear stress test tomorrow Continue tel. AB, as per Dr. Nazario
--- NOTE | 2017-06-17 07:48 | CP.PCM.PN ---
Subjective - Date & Time of Evaluation Date of Evaluation: 06/17/17 Time of Evaluation: 07:00 - Subjective Subjective: Stable on 2R. No CP or SOB. S/P nuclear stress test yesterday. V/S noted. AF with mod. VR. PE: Lungs: clear Cor.: irreg S1S2 Abd.: soft Ext.: no edema Neuro.; alert ECG 06/14: AF, RBBB, LAHB, NSSTW changes No change Lexiscan nuclear stress test 06/16: "Probably abnormal" with small apical defect suspicious for ischemia. See full report. Objective - Vital Signs/Intake and Output Vital Signs (last 24 hours): Temp Pulse Resp BP Pulse Ox 97.7 F 56 L 20 135/71 94 L 06/17/17 06:00 06/17/17 06:00 06/17/17 06:00 06/17/17 06:00 06/17/17 06:00 Intake and Output: 06/17/17 06/17/17 06:59 18:59 Intake Total 180 Output Total 200 Balance -20 - Medications Medications: Current Medications Acetaminophen (Tylenol 325mg Tab) 650 mg PO Q4H PRN PRN Reason: Headache Last Admin: 06/16/17 17:17 Dose: 650 mg Atorvastatin Calcium (Lipitor) 20 mg PO DIN [facility] Last Admin: 06/16/17 17:18 Dose: 20 mg Digoxin (Lanoxin) 0.125 mg PO 1400 [facility] Last Admin: 06/16/17 14:10 Dose: 0.125 mg Diltiazem HCl (Cardizem Cd) 120 mg PO DAILY [facility] Last Admin: 06/16/17 14:10 Dose: 120 mg Lisinopril (Zestril) 20 mg PO DAILY [facility] Last Admin: 06/16/17 14:11 Dose: 20 mg Metoprolol Tartrate (Lopressor) 100 mg PO BID [facility] Last Admin: 06/16/17 17:17 Dose: 100 mg Nitroglycerin (Nitro-Bid 2% Oint) 1 ea TOP Q6 [facility] Last Admin: 06/17/17 06:07 Dose: 1 ea Pantoprazole Sodium (Protonix Ec Tab) 40 mg PO 0600 [facility] Last Admin: 06/17/17 06:07 Dose: 40 mg Trimethoprim/Sulfamethoxazole (Bactrim Ds Tab) 1 tab PO BID [facility] PRN Reason: Protocol Last Admin: 06/16/17 17:17 Dose: 1 tab - Labs Labs: 06/14/17 03:30 06/14/17 03:30 PT 28.8 SECONDS (9.4-12.5) H 06/15/17 06:25 INR 2.57 (0.93-1.08) H 06/15/17 06:25 APTT 48.3 Seconds (25.1-36.5) H 06/13/17 18:30 Assessment and Plan - Assessment and Plan (Free Text) Assessment: CP with min. elevated initial trop and "probably abnormal" nuclear stress test. Chronic AF UTI H/O possible NSTEMI 09/11 Echo 09/11: Nl LV fx HLD GERD BPH Diminished hearing Depression Fx. right wrist Gall Stones Pancreatic cyst H/O remote ETOH Plan: The patient prefers medical therapy at this point. He doses not want cardiac cath at this time. Continue medical therapy A/C for chronic AF. Clarify if he has Eliquis or warfarin at home. Out-pt f/u. If chest pain continues he will reconsider cardiac cath at that time.
[2017-06-17 08:52] LABS: INR 1.73 (0.93-1.08)
[2017-06-17] MEDS: diltiaZEM 120 mg/24 Hours CD Cap PO SCH (09:28)
[2017-06-17] MEDS: Tmp-Smz 800 mg-160 mg DS Tab PO SCH (09:28)
[2017-06-17] MEDS ORDERED: diltiaZEM 120 mg/24 Hours CD Cap PO SCH (11:00)
[2017-06-17] MEDS ORDERED: Digoxin 125 mcg (0.125 mg) Tab PO SCH (14:00)
[2017-06-17] MEDS ORDERED: METOPROLOL 100 MG PO SCH (18:00)
[2017-06-18] MEDS ORDERED: LISINOPRIL 20 MG PO SCH (10:00)
[2017-06-18] MEDS ORDERED: DIGOXIN 0.125 MG PO SCH (10:00)
[2017-06-18] MEDS ORDERED: DILTIAZEM CD 120 MG PO SCH (10:00)
== END 2017-06-17 12:07 | disposition home or self-care (01) | DRG 281 ==
LOC: ED 18:01 → ERH 21:28 → 3RSO 23:37
PROVIDERS: ADMIT Internal Medicine; ATTEND Internal Medicine
DX: I21.4 Non-ST elevation (NSTEMI) myocardial infarction (principal); K86.2 Cyst of pancreas; I48.0 Paroxysmal atrial fibrillation; N39.0 Urinary tract infection, site not specified; I35.0 Nonrheumatic aortic (valve) stenosis; I10 Essential (primary) hypertension; E78.5 Hyperlipidemia, unspecified; I48.2 Chronic atrial fibrillation; K21.9 Gastro-esophageal reflux disease without esophagitis; F32.89 Other specified depressive episodes; H91.93 Unspecified hearing loss, bilateral; I25.2 Old myocardial infarction; K80.20 Calculus of gallbladder without cholecystitis without obstruction; N40.1 Benign prostatic hyperplasia with lower urinary tract symptoms; R79.1 Abnormal coagulation profile; Z79.01 Long term (current) use of anticoagulants; Z79.899 Other long term (current) drug therapy; Z87.891 Personal history of nicotine dependence; Z98.49 Cataract extraction status, unspecified eye; Z87.81 Personal history of (healed) traumatic fracture; B95.2 Enterococcus as the cause of diseases classified elsewhere

== ENCOUNTER 2017-06-17 12:37 | Inpatient (IN) | payer MEDICARE ==
[2017-06-17 12:38] VITALS: PULSE 72
--- NOTE | 2017-06-17 13:10 | ED PDOC ---
Arrival/HPI - General Chief Complaint: Chest Pain Time Seen by Provider: 06/17/17 12:44 Historian: Patient, Family - History of Present Illness Narrative History of Present Illness (Text): 06/17/17 13:04 An 86 year old male, whose past medical history includes atrial fibrillation, hypertension, and hyperlipidemia, presents to the emergency department with a complaint of chest pain. The patient states that he was discharged from [facility] a few hours ago and at the time was experiencing the chest pain in the hospital. The patient's family state that a cardiac catheterization was offered, but the patient refused at the time. The family states that when the patient arrived at home he became pale, agitated and unstable, which prompted them to bring him to the emergency department. The family state that they are not sure if the patient is on Coumadin. As per the patient's nurse prior to discharge this morning, the patient did not take Aspirin or Nitroglycerine.The patient denies fevers, chills, headache, dizziness, shortness of breath, dyspnea on exertion, cough, abdominal pain, nausea, vomiting, diarrhea, back pain, neck pain, urinary /bowel changes, or any other complaint. PMD: Dr. Nazario Dance Director: Dr. Cornejo Time/Duration: Other (This Morning) Symptom Onset: Sudden Symptom Course: Unchanged Activities at Onset: Rest, Light Context: Home Past Medical History - Provider Review Nursing Documentation Reviewed: Yes - Infectious Disease Hx of Infectious Diseases: None - Cardiac Hx Cardiac Disorders: Yes Hx Hypertension: Yes Other/Comment: POSITIVE STRESS TEST, APICAL ISCHEMIA - Pulmonary Hx Respiratory Disorders: No - Neurological Hx Neurological Disorder: No - HEENT Hx HEENT Disorder: Yes Hx Cataracts: Yes Hx Deafness: Yes - Renal Hx Renal Disorder: No - Endocrine/Metabolic Hx Endocrine Disorders: No - Hematological/Oncological Hx Blood Disorders: No - Integumentary Hx Dermatological Disorder: No - Musculoskeletal/Rheumatological Hx Musculoskeletal Disorders: No Hx Falls: No - Gastrointestinal Hx Gastrointestinal Disorders: Yes Hx Gastroesophageal Reflux: Yes - Genitourinary/Gynecological Hx Genitourinary Disorders: Yes Hx Prostate Problems: Yes - Psychiatric Hx Psychophysiologic Disorder: No Hx Depression: No Hx Emotional Abuse: No Hx Physical Abuse: No Hx Substance Use: No - Surgical History Hx Cataract Extraction: Yes Other/Comment: metal plate rt forearm - Anesthesia Hx Anesthesia: Yes - Suicidal Assessment Feels Threatened In Home Enviroment: No Family/Social History - Physician Review Nursing Documentation Reviewed: Yes Family/Social History: No Known Family HX Smoking Status: Never Smoked Hx Alcohol Use: No Hx Substance Use: No Hx Substance Use Treatment: No Allergies/Home Meds Allergies/Adverse Reactions: Allergies No Known Allergies Allergy (Verified 06/17/17 12:42) Home Medications: Home Meds Medication Instructions Recorded Confirmed Simvastatin 20 mg PO DAILY 05/02/12 06/17/17 Tamsulosin [Flomax] 0.4 mg PO DAILY 09/10/16 06/17/17 Digoxin (RENAL USE) 0.125 mg PO DAILY 09/19/16 06/17/17 Lisinopril 20 mg PO DAILY 09/19/16 06/17/17 Metoprolol 100 mg PO BID 09/19/16 06/17/17 diltiaZEM CD 120 mg PO DAILY 09/19/16 06/17/17 Review of Systems - Physician Review All systems were reviewed & negative as marked: Yes - Review of Systems Constitutional: absent: Fevers, Night Sweats Respiratory: absent: SOB Cardiovascular: Chest Pain. absent: AQUINO Gastrointestinal: absent: Abdominal Pain, Stool Changes, Diarrhea, Nausea, Vomiting Genitourinary Male: absent: Urinary Output Changes Musculoskeletal: absent: Back Pain, Neck Pain Neurological: absent: Headache, Dizziness Physical Exam Vital Signs Reviewed: Yes Vital Signs Temp Pulse Resp BP Pulse Ox 06/17/17 15:33 98.8 F 51 L 17 160/90 H 06/17/17 15:19 97.8 F 53 L 20 140/73 98 06/17/17 12:53 97.6 F 60 17 160/90 H 96 Temperature: Afebrile Blood Pressure: Hypertensive Pulse: Regular Respiratory Rate: Normal Appearance: Positive for: Well-Appearing, Non-Toxic, Comfortable Pain Distress: None Mental Status: Positive for: Alert and Oriented X 3 - Systems Exam Head: Present: Atraumatic, Normocephalic Pupils: Present: PERRL Extroacular Muscles: Present: EOMI Conjunctiva: Present: Normal Mouth: Present: Moist Mucous Membranes Neck: Present: Normal Range of Motion Respiratory/Chest: Present: Clear to Auscultation, Good Air Exchange, Other ( Chest pain non- reproducible.). No: Respiratory Distress, Accessory Muscle Use Cardiovascular: Present: Regular Rate and Rhythm, Normal S1, S2. No: Murmurs Abdomen: Present: Normal Bowel Sounds. No: Tenderness, Distention, Peritoneal Signs Back: Present: Normal Inspection Upper Extremity: Present: Normal Inspection. No: Cyanosis, Edema Lower Extremity: Present: Normal Inspection. No: Edema (No peripheral edema) Neurological: Present: GCS=15, CN II-XII Intact, Speech Normal Skin: Present: Warm, Dry, Normal Color. No: Rashes Psychiatric: Present: Alert, Oriented x 3, Normal Insight, Normal Concentration Medical Decision Making ED Course and Treatment: 06/17/17 13:13 Impression: An 86 year old male presents to the emergency department with a complaint of chest pain. Patient was discharged from [facility] a few hours ago. Plan: -- EKG -- Chest X-ray -- Labs -- Aspirin and Nitrostat -- Reassess and disposition Prior Visits: Notes and results from previous visits were reviewed. Patient was last seen in the emergency department on 06/13/17. Patient was seen in the emergency department with a complaint of chest pain. The patient was hospitalized. Progress Notes: 06/17/17 13:28: Case discussed in detail with Dr. Alia Nazario. Will admit to the ICU under his service. 06/17/17 13:42: Discussed case in detail with Dr. Jacques (ICU). EKG: Ordered, reviewed, and independently interpreted the EKG. Rate 60 BPM Rhythm : Sinus Bradycardia Interpretation : RBBB. No acute ST changes. CHEST X-RAY Creator : Ismael Witt Report Date : 06/17/2017 13:55:10 IMPRESSION: Mild hazy appearance of the perihilar/infrahilar regions and both lung bases right greater than left. . Changes could represent atelectasis however developing infiltrates could be excluded followup radiographs. Questionable minimal blunting left CP angle. - Lab Interpretations Lab Results: 06/17/17 12:50 06/17/17 12:50 Lab Results 06/17/17 12:50: Sodium 140, Potassium 4.1, Chloride 106, Carbon Dioxide 25, Anion Gap 12, BUN 26 H, Creatinine 1.5, Est GFR ( Amer) 54, Est GFR (Non- Af Amer) 45, Random Glucose 91, Calcium 9.1, Total Bilirubin 0.6, AST 22, ALT 18 , Alkaline Phosphatase 61, Troponin I 0.02 D, NT-Pro-B Natriuret Pep 147, Total Protein 6.7, Albumin 3.8, Globulin 2.9, Albumin/Globulin Ratio 1.3 06/17/17 12:50: PT 19.0 H, INR 1.71 H 06/17/17 12:50: WBC 5.3 D, RBC 4.49, Hgb 13.2 L, Hct 39.5 L, MCV 88.0, MCH 29.4 , MCHC 33.4, RDW 14.1, Plt Count 204, MPV 10.3, Gran % 66.4, Lymph % (Auto) 18.1 L, Ocean % (Auto) 10.0 H, Eos % (Auto) 5.1 H, Baso % (Auto) 0.4, Gran # 3.53 , Lymph # 1.0 L, Ocean # 0.5, Eos # 0.3, Baso # 0.02 I have reviewed the lab results: Yes - RAD Interpretation Radiology Orders: 06/17/17 13:03 CHEST PORTABLE [RAD] Stat - EKG Interpretation Interpreted by ED Physician: Yes Type: 12 lead EKG - Medication Orders Current Medication Orders: Acetaminophen (Tylenol 325mg Tab) 650 mg PO Q6H PRN PRN Reason: Fever >100.4 F or headache Last Admin: 06/17/17 18:45 Dose: 650 mg MAR Pain/Vitals Document 06/17/17 18:45 GLI (Rec: 06/17/17 18:46 [facility] [id number]) Pain Reassessment Is This A Pain ReAssessment? No Presence of Pain Presence of Pain Yes Pain Scale Used Pain Scale Used Numeric Location Pain Location Body Appliquer Zigzag Description Intermittent Intensity 8 Scale Used Numeric Pain Behavior Facial Grimacing Aggravating Factors Changing Position Alleviating Factors Medication Aspirin (Aspirin) 81 mg PO DAILY [facility] Atorvastatin Calcium (Lipitor) 40 mg PO DAILY [facility] Last Admin: 06/17/17 15:21 Dose: 40 mg Clopidogrel Bisulfate (Plavix) 75 mg PO DAILY [facility] Last Admin: 06/17/17 15:21 Dose: 75 mg Nitroglycerin/Dextrose (Nitroglycerin 50 Mg/250 Ml D5w) 50 mg in 250 mls @ 1.5 mls/hr IV .Q24H PRN; Protocol; 5 MCG/MIN PRN Reason: Pain, Mild (1-3) Last Titration: 06/17/17 17:47 Dose: 10 mcg/min, 3 mls/hr Titration Intervention Document 06/17/17 17:47 RAMOM (Rec: 06/17/17 17:48 [id number]) Titration Intake Titration Intake 1 Cumulative Intake 1 Cumulative Intake (Rx) 1 Waste Amount 0 Container Volume 249 Titration Dosing Titration Dose 10 IV Rate 3 Intake/Decrease Increased Cumulative Dose 0.2 Heparin Sodium/Dextrose (Heparin 25,000 Units/250ml In D5w) 25,000 units in 250 mls @ 7.675 mls/hr IV .Q24H SUE; 12 UNITS/KG/HR PRN Reason: Protocol Last Admin: 06/17/17 15:50 Dose: 12 units/kg/hr, 7.675 mls/hr eMAR Start Stop Document 06/17/17 15:50 [facility] (Rec: 06/17/17 15:50 [facility] [id number]) Intravenous Solution Start Date 06/17/17 Start Time 15:50 Titration Intervention Document 06/17/17 15:50 [facility] (Rec: 06/17/17 15:50 [facility] [id number]) Titration Intake Waste Amount 0 Container Volume 250 Titration Dosing Titration Dose 12 IV Rate 7.675 Intake/Decrease Started Pantoprazole Sodium (Protonix Inj) 40 mg IVP DAILY SUE Last Admin: 06/17/17 15:20 Dose: 40 mg IVP Administration Document 06/17/17 15:20 [facility] (Rec: 06/17/17 15:21 [facility] [id number]) Charges for Administration # of IVP Administrations 1 Discontinued Medications Aspirin (Aspirin) 325 mg PO STAT STA Stop: 06/17/17 13:07 Last Admin: 06/17/17 13:13 Dose: 325 mg Nitroglycerin (Nitrostat Sl Tab) 0.4 mg SL STAT STA Stop: 06/17/17 13:08 Last Admin: 06/17/17 13:13 Dose: 0.4 mg Pneumococcal Polyvalent Vaccine (Pneumovax 23 Vaccine) 0.5 ml IM .ONCE ONE Stop: 06/17/17 15:52 - Scribe Statement The provider has reviewed the documentation as recorded by the Aissatou Garcia Provider Scribe Attestation: All medical record entries made by the Scribe were at my direction and personally dictated by me. I have reviewed the chart and agree that the record accurately reflects my personal performance of the history, physical exam, medical decision making, and the department course for this patient. I have also personally directed, reviewed, and agree with the discharge instructions and disposition. Disposition/Present on Arrival - Present on Arrival Any Indicators Present on Arrival: Yes History of DVT/PE: No History of Uncontrolled Diabetes: No Urinary Catheter: Yes (inserted in ed) History of Decub. Ulcer: No History Surgical Site Infection Following: None - Disposition Have Diagnosis and Disposition been Completed?: Yes Diagnosis: Recent non-ST elevation myocardial infarction (NSTEMI), Angina at rest Disposition: HOSPITALIZED Disposition Time: 13:30 Patient Plan: ICU Patient Problems: Current Active Problems Problem Status Onset Angina at rest Acute Recent non-ST elevation myocardial infarction (NSTEMI) Acute Condition: CRITICAL
[2017-06-17 13:30] LABS: BASO # 0.02 K/mm3 (0.0-2.0); BASO % 0.4 % (0.0-3.0); EOS # 0.3 (0.0-0.7); EOS % 5.1 % (1.5-5.0); GRAN # 3.53 (1.4-6.5); GRAN % 66.4 % (50.0-68.0); HEMATOCRIT 39.5 % (42.0-52.0); LYMPH % 18.1 % (22.0-35.0); MEAN CORPUSCULAR HEMOGLOBIN 29.4 pg (25.0-35.0); MEAN CORPUSCULAR HGB CONC 33.4 g/dl (31.0-37.0); MEAN PLATELET VOLUME 10.3 fl (7.0-11.0); MONO # 0.5 (0.1-0.6); RED CELL DISTRIBUTION WIDTH 14.1 % (11.5-14.5); WHITE BLOOD COUNT 5.3 10^3/ul (4.5-11.0)
[2017-06-17] MEDS ORDERED: Nitroglycerin 50mg in D5W 50 MG/250 ML BOTTLE IV PRN (13:32)
[2017-06-17 13:40] LABS: TROPONIN I 0.02 ng/mL
[2017-06-17 13:41] LABS: INR 1.71 (0.93-1.08)
--- NOTE | 2017-06-17 13:56 | RAD ---
HISTORY: chest pain COMPARISON: Comparison chest 06/13/2017 FINDINGS: LUNGS: Mild hazy appearance of the perihilar/infrahilar regions and both lung bases right greater than left. . Changes could represent atelectasis however developing infiltrates could be excluded followup radiographs. Questionable minimal blunting left CP angle. PLEURA: As above. No apparent pneumothorax CARDIOVASCULAR: Heart size stable OSSEOUS STRUCTURES: Mild multilevel degenerative spondylosis of the thoracic spine. Degenerative changes both shoulder girdles. VISUALIZED UPPER ABDOMEN: Normal. OTHER FINDINGS: None. IMPRESSION: Mild hazy appearance of the perihilar/infrahilar regions and both lung bases right greater than left. . Changes could represent atelectasis however developing infiltrates could be excluded followup radiographs. Questionable minimal blunting left CP angle.
[2017-06-17 14:03] LABS: ALB/GLOB RATIO 1.3 (1.1-1.8); BILIRUBIN,TOTAL 0.6 mg/dL (0.2-1.3); CALCIUM 9.1 mg/dL (8.4-10.5); POTASSIUM 4.1 mmol/L (3.6-5.0); TOTAL PROTEIN 6.7 g/dL (5.8-8.3)
[2017-06-17] MEDS ORDERED: Heparin 25,000units in D5W 25,000 UNITS/250 ML BAG IV SCH (14:45)
[2017-06-17 15:51] VITALS: BMI 22.1
[2017-06-17] MEDS ORDERED: Influenza Vaccine 60 mcg/0.5 mL SYR (4YR UP) IM ONE (15:51)
[2017-06-17] MEDS ORDERED: Pneumococcal 23-Valent Vaccine IM ONE (15:51)
--- NOTE | 2017-06-17 19:43 | CARD ---
APPROVED REPORT EKG Measurement Heart [id number] ID [id number] <Conclusion> Sinus bradycardia Right bundle branch block Abnormal ECG
--- NOTE | 2017-06-17 21:19 | CON ---
DATE: 06/17/2017 HISTORY OF PRESENT ILLNESS: This is an 86-year-old gentleman with history of atrial fibrillation, hypertension, hyperlipidemia, and coronary artery disease diagnosed on recent stress test, who was offered cardiac catheterization as recently as a week ago; however, he refused at that time. He is currently came with chest pain which was getting progressively worse since morning. It has reached a level at which he had to return to [facility] and to be agreeable for cardiac catheterization. Dr. Cornejo saw him earlier today, but at that time he was refusing cardiac catheterization. At the present time, he however changed his mind and Dr. Cornejo's followup is pending. Meanwhile, the patient was put on nitroglycerin drip, aspirin, Plavix, and statins, TAC. BBs are withheld as patient is relatively bradycardic. Of note, the patient appears to be on Eliquis. His INR is 1.74 today. The patient denies shortness of breath. The chest pain is tight in character, it is not radiating to anywhere else, it is substernal. There are no aggravating or alleviating factors. PAST MEDICAL HISTORY: Atrial fibrillation, hypertension, hyperlipidemia, coronary artery disease. FAMILY HISTORY: Noncontributory. SOCIAL HISTORY: The patient is lifelong nonsmoker. No alcohol or illicit drug abuse. HOME MEDICATION: Lipitor, Flomax, digoxin, lisinopril, metoprolol, Cardizem. ALLERGIES: NKDA. REVIEW OF SYSTEMS: Review of 12-organ system other than mentioned in history of present illness is negative. PHYSICAL EXAMINATION: VITAL SIGNS: Temperature 97.6, heart rate 50 to 56 irregular, blood pressure 160/90, respiratory rate is 17, and oxygen saturation 96% on room air. ENT: Head and neck atraumatic. LUNGS: Clear to auscultation bilaterally. HEART: Irregular rate and rhythm. S1 and S2 distant. ABDOMEN: Soft, nontender, nondistended. MUSCULOSKELETAL: No C/C/E. NEUROLOGIC: The patient moves all extremities spontaneously. SKIN: Color is moist. PSYCHIATRIC: The patient is alert and oriented x3. LABORATORY DATA: WBC 5.3, hemoglobin 13.2, and platelet count 204. Sodium 140, potassium 4.1, chloride 106, carbon dioxide 25, BUN 26, creatinine 1.5, and glucose 91. AST 22 and ALT 18. Troponin 0.02. ASSESSMENT AND PLAN: This is an 86-year-old gentleman with acute coronary syndrome. He has ongoing chest pain and recently positive stress test. Cardiology followup is pending. Meanwhile, the patient is on aspirin and Plavix therapeutic anticoagulation, statins, beta-blockers are contraindicated due to relative bradycardia. The patient will be going to ICU for further management and monitoring. We will continue with conservative fluid management. We will continue to target euvolemia, euglycemia, normothermia, and oxygen saturation more than 90%. We will continue with deep venous thrombosis and gastrointestinal prophylaxis. ccm time 40 min Juan Manuel Jacques MD MTDD
[2017-06-18 04:28] LABS: BASO # 0.02 K/mm3 (0.0-2.0); BASO % 0.5 % (0.0-3.0); EOS # 0.2 (0.0-0.7); EOS % 5.5 % (1.5-5.0); GRAN # 2.25 (1.4-6.5); GRAN % 51.4 % (50.0-68.0); HEMATOCRIT 35.6 % (42.0-52.0); LYMPH # 1.4 (1.2-3.4); LYMPH % 32.3 % (22.0-35.0); MEAN CELL VOLUME 86.8 fl (80.0-105.0); MEAN CORPUSCULAR HGB CONC 33.4 g/dl (31.0-37.0); MONO # 0.5 (0.1-0.6); MONO % 10.3 % (1.0-6.0); RED CELL DISTRIBUTION WIDTH 14.1 % (11.5-14.5); WHITE BLOOD COUNT 4.4 10^3/ul (4.5-11.0)
[2017-06-18 04:31] LABS: ALB/GLOB RATIO 1.3 (1.1-1.8); BILIRUBIN,TOTAL 0.5 mg/dL (0.2-1.3); TOTAL PROTEIN 6.2 g/dL (5.8-8.3)
[2017-06-18] MEDS ORDERED: Iohexol 350mgl/ml 50 ML ONE (08:55)
[2017-06-18] MEDS ORDERED: Lidocaine 2% Inj (20ml) ONE (08:55)
[2017-06-18] MEDS ORDERED: Iodixanol 320 MG/ML 100 ML BOTTLE IV ONE (08:55)
[2017-06-18] MEDS ORDERED: Iodixanol 320 MG/ML 200 ML BOTTLE IV ONE (08:55)
[2017-06-18] MEDS ORDERED: Midazolam 2 MG/2 ML VIAL ONE (09:04)
--- NOTE | 2017-06-18 09:07 | CON ---
DATE: 06/18/2017 SUBJECTIVE: The patient is seen lying in bed in the CCU. He was discharged yesterday, but was readmitted several hours later with chest pain. He had undergone a stress test last week after being admitted with chest pain. This showed a partial reversible small apical defect. Fixed inferior defect was also noted. Ejection fraction was 52%. Catheterization was advised; however, he refused. He was discharged to home, but came back several hours later with recurrent chest pain. His electrocardiogram was unremarkable and the cardiac enzymes have been negative. PAST MEDICAL HISTORY: His past history is notable for the problems as mentioned above. He has had paroxysmal atrial fibrillation in the past, history of hypertension, hyperlipidemia, urinary retention, BPH, prior wrist surgery, pancreatic cyst, gallstones, history of alcohol use and depression. MEDICATIONS: His current medications are aspirin, IV heparin, Lipitor, IV nitroglycerin, Plavix, Protonix and Tylenol. ALLERGIES: NONE. FAMILY HISTORY: Both parents from age-related illness. SOCIAL HISTORY: He is a former smoker. He denies any recent alcohol abuse. REVIEW OF SYSTEMS: A 10-point review of systems is otherwise unremarkable. PHYSICAL EXAMINATION: GENERAL: He is a thin elderly man. VITAL SIGNS: His blood pressure is 110/60 with a pulse of 50, respirations are 14. He is afebrile. HEENT: No JVD. CHEST: Few scattered rhonchi. HEART: PMI displaced laterally with increased splitting of the second sound. ABDOMEN: Soft, nontender. Normoactive bowel sounds. EXTREMITIES: No edema. DIAGNOSTIC DATA: Electrocardiogram reveals sinus rhythm with right bundle-branch block. No acute ST-T changes. White count is 4.4, hemoglobin and hematocrit are 11.9 and 35.6 with a platelet count of 164,000. Potassium 4.0, BUN and creatinine 26 and 1.4. Two sets of cardiac enzymes are normal. Chest x-ray reveals bilateral atelectatic changes. IMPRESSION: 1. Recurrent chest pain with recent abnormal stress test, probable significant coronary artery disease. 2. Rest of problems as noted. RECOMMENDATIONS: Given his recurrent symptoms, a cardiac catheterization would be advised plan appropriate treatment options. If possible, this will be performed today if not on Wednesday. His IV nitroglycerin can be discontinued. The date of operative therapy is on hold because of resting bradycardia. Further recommendations will make based upon his clinical course and results of his catheterization. Randy Marroquin MD
[2017-06-18] MEDS ORDERED: Sodium Chloride 0.9% 1,000 ML IV SCH (10:00)
--- NOTE | 2017-06-18 11:30 | CP.CCUPN ---
<Reinaldo Long - Last Filed: 06/18/17 11:59> CCU Subjective - Physician Review Subjective (Free Text): Critical care progress note - Alia Long PGY2 Patient seen and examined this morning prior to and post cardiac catherization. No acute overnight events or new complaints reported. Patient tolerated PCI well and had 2 drug eluting stents placed in the LAD. Complained of some mild chest pain prior to PCI while on nitro drip. However patient taken promptly to cardiac cath this morning. Denies shortness of breath, palpitations. CCU Objective - Vital Signs / Intake & Output Vital Signs (Last 4 hours): Vital Signs Pulse Resp BP Pulse Ox 06/18/17 11:09 53 L 155/72 H 06/18/17 11:00 54 L 19 155/72 H 98 06/18/17 10:50 54 L 14 95 06/18/17 10:45 52 L 15 141/70 97 06/18/17 10:40 54 L 18 97 06/18/17 10:39 54 L 14 134/70 97 06/18/17 10:30 53 L 18 130/64 96 06/18/17 10:20 53 L 15 95 06/18/17 10:15 52 L 16 142/69 94 L 06/18/17 10:10 52 L 19 96 06/18/17 10:07 58 L 25 H 126/90 94 L 06/18/17 10:06 53 L 20 06/18/17 10:00 53 L 06/18/17 08:50 52 L 22 99 06/18/17 08:40 52 L 24 97 06/18/17 08:30 52 L 19 110/62 97 06/18/17 08:20 50 L 20 97 06/18/17 08:10 52 L 45 H 96 06/18/17 08:00 52 L 124/74 97 06/18/17 07:50 56 L 20 96 06/18/17 07:40 60 22 96 06/18/17 07:30 57 L 45 H 100 Intake and Output (Last 8hrs): Intake & Output 06/17/17 06/18/17 06/18/17 22:59 06:59 14:59 Intake Total 66 112 Output Total 200 Balance 66 -88 Weight 141 lb 148 lb 1 oz Intake: IV 66 112 Left Antecubital 76 Right Hand 36 Output: Urine 200 Urine, Voided 200 Other: Voiding Method Urinal - Physical Exam Head: Positive for: Atraumatic, Normocephalic Pupils: Positive for: PERRL Extroacular Muscles: Positive for: EOMI Conjunctiva: Positive for: Normal Mouth: Positive for: Moist Mucous Membranes Neck: Positive for: Normal Range of Motion Respiratory/Chest: Positive for: Clear to Auscultation, Good Air Exchange. Negative for: Respiratory Distress, Accessory Muscle Use Cardiovascular: Positive for: Regular Rate and Rhythm, Normal S1, S2. Negative for: Murmurs Abdomen: Positive for: Normal Bowel Sounds. Negative for: Tenderness, Distention, Peritoneal Signs Back: Positive for: Normal Inspection Upper Extremity: Positive for: Normal Inspection. Negative for: Cyanosis, Edema Lower Extremity: Positive for: Normal Inspection. Negative for: Edema (No peripheral edema) Neurological: Positive for: GCS=15, CN II-XII Intact, Speech Normal Skin: Positive for: Warm, Dry, Normal Color. Negative for: Rashes Psychiatric: Positive for: Alert, Oriented x 3, Normal Insight, Normal Concentration - Medications Active Medications: Active Medications Generic Name Dose Route Start Last Admin Trade Name Freq PRN Reason Stop Dose Admin Acetaminophen 650 mg 06/17/17 18:27 06/17/17 18:45 Tylenol 325mg Tab PO 650 mg Q6H PRN Administration Fever >100.4 F or headache Aspirin 81 mg 06/18/17 10:00 06/18/17 10:49 Aspirin Chewable PO Not Given DAILY [facility]UE Atorvastatin Calcium 40 mg 06/17/17 14:15 06/18/17 10:58 Lipitor PO 40 mg DAILY [facility]UE Administration Clopidogrel Bisulfate 75 mg 06/17/17 14:45 06/18/17 10:51 Plavix PO Not Given DAILY SUE Sodium Chloride 1,000 mls @ 100 mls/hr 06/18/17 10:00 06/18/17 10:58 Sodium Chloride 0.9% IV 06/18/17 16:01 100 mls/hr .Q10H SUE Administration Metoprolol Tartrate 25 mg 06/18/17 10:00 06/18/17 11:09 Lopressor PO Not Given BID SUE Pantoprazole Sodium 40 mg 06/17/17 15:00 06/18/17 10:58 Protonix Inj IVP 40 mg DAILY SUE Administration - Patient Studies Lab Studies: Lab Studies 06/18/17 06/18/17 06/18/17 Range/Units 05:30 04:00 04:00 WBC (4.5-11.0) 10^3/ul RBC (3.5-6.1) 10^6/uL Hgb (14.0-18.0) g/dL Hct (42.0-52.0) % MCV (80.0-105.0) fl MCH (25.0-35.0) pg MCHC (31.0-37.0) g/dl RDW (11.5-14.5) % Plt Count (120.0-450.0) 10^3/uL MPV (7.0-11.0) fl Gran % (50.0-68.0) % Lymph % (Auto) (22.0-35.0) % [place] % (Auto) (1.0-6.0) % Eos % (Auto) (1.5-5.0) % Baso % (Auto) (0.0-3.0) % Gran # (1.4-6.5) Lymph # (1.2-3.4) [place] # (0.1-0.6) Eos # (0.0-0.7) Baso # (0.0-2.0) K/mm3 APTT 183.4 H* > 400.0 H* (25.1-36.5) Seconds Sodium 138 (132-148) mmol/L Potassium 4.0 (3.6-5.0) mmol/L Chloride 108 H (98-107) mmol/L Carbon Dioxide 24 (21-33) mmol/L Anion Gap 10 (10-20) BUN 26 H (7-21) mg/dL Creatinine 1.4 (0.8-1.5) mg/dl Est GFR ( Amer) 58 Est GFR (Non-Af Amer) 48 Random Glucose 86 (70-110) mg/dL Calcium 9.0 (8.4-10.5) mg/dL Total Bilirubin 0.5 (0.2-1.3) mg/dL AST 18 (17-59) U/L ALT 35 (7-56) U/L Alkaline Phosphatase 56 (38-126) U/L Troponin I ng/mL Total Protein 6.2 (5.8-8.3) g/dL Albumin 3.5 (3.0-4.8) g/dL Globulin 2.7 gm/dL Albumin/Globulin Ratio 1.3 (1.1-1.8) 06/18/17 06/17/17 06/17/17 Range/Units 04:00 22:00 16:35 WBC 4.4 L (4.5-11.0) 10^3/ul RBC 4.10 (3.5-6.1) 10^6/uL Hgb 11.9 L (14.0-18.0) g/dL Hct 35.6 L (42.0-52.0) % MCV 86.8 (80.0-105.0) fl MCH 29.0 (25.0-35.0) pg MCHC 33.4 (31.0-37.0) g/dl RDW 14.1 (11.5-14.5) % Plt Count 164 (120.0-450.0) 10^3/uL MPV 10.0 (7.0-11.0) fl Gran % 51.4 (50.0-68.0) % Lymph % (Auto) 32.3 (22.0-35.0) % [place] % (Auto) 10.3 H (1.0-6.0) % Eos % (Auto) 5.5 H (1.5-5.0) % Baso % (Auto) 0.5 (0.0-3.0) % Gran # 2.25 (1.4-6.5) Lymph # 1.4 (1.2-3.4) [place] # 0.5 (0.1-0.6) Eos # 0.2 (0.0-0.7) Baso # 0.02 (0.0-2.0) K/mm3 APTT 93.1 H (25.1-36.5) Seconds Sodium (132-148) mmol/L Potassium (3.6-5.0) mmol/L Chloride (98-107) mmol/L Carbon Dioxide (21-33) mmol/L Anion Gap (10-20) BUN (7-21) mg/dL Creatinine (0.8-1.5) mg/dl Est GFR ( Amer) Est GFR (Non-Af Amer) Random Glucose (70-110) mg/dL Calcium (8.4-10.5) mg/dL Total Bilirubin (0.2-1.3) mg/dL AST (17-59) U/L ALT (7-56) U/L Alkaline Phosphatase (38-126) U/L Troponin I 0.02 ng/mL Total Protein (5.8-8.3) g/dL Albumin (3.0-4.8) g/dL Globulin gm/dL Albumin/Globulin Ratio (1.1-1.8) Laboratory Results - last 24 hr 06/17/17 06/17/17 06/18/17 16:35 22:00 04:00 WBC 4.4 L RBC 4.10 Hgb 11.9 L Hct 35.6 L MCV 86.8 MCH 29.0 MCHC 33.4 RDW 14.1 Plt Count 164 MPV 10.0 Gran % 51.4 Lymph % (Auto) 32.3 [place] % (Auto) 10.3 H Eos % (Auto) 5.5 H Baso % (Auto) 0.5 Gran # 2.25 Lymph # 1.4 [place] # 0.5 Eos # 0.2 Baso # 0.02 APTT 93.1 H Sodium Potassium Chloride Carbon Dioxide Anion Gap BUN Creatinine Est GFR ( Amer) Est GFR (Non-Af Amer) Random Glucose Calcium Total Bilirubin AST ALT Alkaline Phosphatase Troponin I 0.02 Total Protein Albumin Globulin Albumin/Globulin Ratio 06/18/17 06/18/17 06/18/17 04:00 04:00 05:30 WBC RBC Hgb Hct MCV MCH MCHC RDW Plt Count MPV Gran % Lymph % (Auto) [place] % (Auto) Eos % (Auto) Baso % (Auto) Gran # Lymph # [place] # Eos # Baso # APTT > 400.0 H* 183.4 H* Sodium 138 Potassium 4.0 Chloride 108 H Carbon Dioxide 24 Anion Gap 10 BUN 26 H Creatinine 1.4 Est GFR ( Amer) 58 Est GFR (Non-Af Amer) 48 Random Glucose 86 Calcium 9.0 Total Bilirubin 0.5 AST 18 ALT 35 Alkaline Phosphatase 56 Troponin I Total Protein 6.2 Albumin 3.5 Globulin 2.7 Albumin/Globulin Ratio 1.3 EKG/Cardiology Studies: Cardiology / EKG Studies 06/18/17 09:52 ELECTROCARDIOGRAM Urgent Comment: 12 lead EKG upon arrival in unit Reason For Exam: post ptca 06/19/17 10:00 ELECTROCARDIOGRAM DAILY Comment: Reason For Exam: chest pain Assessment/Plan - Assessment and Plan (Free Text) Plan: 86yo male with history of hypertension, hyperlipidemia and coronary artery disease presents c/o chest pain. Patient had been recently admitted for chest pain with elevated troponin and was offered cardiac catherization at that time which he denied. Presently, he is status post PCI with 2 drug eluting stents placed in the LAD. Neuro: -Awake, alert, oriented x3; Answering questions appropriately -Maintain normothermia Cardio: -Presently hemodynamically stable with MAP > 65 -Continue ACS protocol with ASA 81mg daily, Lipitor 40mg PO HS, Plavix 75mg PO daily, Metoprolol 25mg PO BID (with hold parameters given patients bradycardia) -Presently s/p cardiac catherization with placement of 2 drug eluting stents in the proximal and mid LAD -Cardiology following - Dr. Marroquin Pulm: -Maintain SaO2 > 90%; presently comfortable on 2LNC -HOB > 30' -CXR reviewed; revealed mild hazy appearance of perihilar regions and both lung bases (R>L) GI: -Heart healthy diet -Protonix for GI prophylaxis Endo: -Maintain euglycemia with blood sugars between 140-180's Nephro: -Monitor and correct electrolyte abnormalities as indicated -IVF hydration post cath ID: -Afebrile, no leukocytosis -No source of infection at this time Prophylaxis: SCD's/Protonix Patient seen and case discussed/reviewed with attending, Dr. Jacques - Date & Time Date: 06/18/17 Time: 11:26 <Juan Manuel Jacques - Last Filed: 06/18/17 16:53> CCU Objective - Vital Signs / Intake & Output Vital Signs (Last 4 hours): Vital Signs Pulse Resp BP Pulse Ox 06/18/17 15:00 70 32 H 84 L 06/18/17 14:50 68 26 H 96 06/18/17 14:47 67 26 H 152/68 H 97 06/18/17 14:45 71 38 H 185/89 H 94 L 06/18/17 14:40 68 97 06/18/17 14:31 63 26 H 191/66 H 96 06/18/17 14:30 67 24 98 06/18/17 14:24 94 H 17 06/18/17 14:23 65 175/75 H 06/18/17 14:20 73 19 83 L 06/18/17 14:19 65 23 175/75 H 97 06/18/17 14:15 73 25 H 186/103 H 95 06/18/17 14:10 70 25 H 95 06/18/17 14:00 67 23 171/81 H 97 06/18/17 13:50 70 23 96 06/18/17 13:45 87 19 153/79 H 94 L 06/18/17 13:40 76 34 H 98 06/18/17 13:30 85 14 79 L 06/18/17 13:20 66 93 L 06/18/17 13:16 61 16 177/60 H 98 06/18/17 13:10 59 L 21 96 06/18/17 13:00 60 16 170/78 H 96 Intake and Output (Last 8hrs): Intake & Output 06/18/17 06/18/17 06/18/17 06:59 14:59 22:59 Intake Total 112 Output Total 200 Balance -88 Weight 148 lb 1 oz Intake: IV 112 Left Antecubital 76 Right Hand 36 Output: Urine 200 Urine, Voided 200 - Medications Active Medications: Active Medications Generic Name Dose Route Start Last Admin Trade Name Freq PRN Reason Stop Dose Admin Acetaminophen 650 mg 06/17/17 18:27 06/17/17 18:45 Tylenol 325mg Tab PO 650 mg Q6H PRN Administration Fever >100.4 F or headache Aspirin 81 mg 06/18/17 10:00 06/18/17 10:49 Aspirin Chewable PO Not Given DAILY [facility] Atorvastatin Calcium 40 mg 06/17/17 14:15 06/18/17 10:58 Lipitor PO 40 mg DAILY [facility] Administration Clopidogrel Bisulfate 75 mg 06/17/17 14:45 06/18/17 10:51 Plavix PO Not Given DAILY [facility] Lisinopril 20 mg 06/18/17 17:00 Zestril PO DAILY [facility] Metoprolol Tartrate 25 mg 06/18/17 10:00 06/18/17 14:23 Lopressor PO 25 mg BID SUE Administration Pantoprazole Sodium 40 mg 06/17/17 15:00 06/18/17 10:58 Protonix Inj IVP 40 mg DAILY SUE Administration - Patient Studies Lab Studies: Lab Studies 06/18/17 06/18/17 06/18/17 Range/Units 05:30 04:00 04:00 WBC (4.5-11.0) 10^3/ul RBC (3.5-6.1) 10^6/uL Hgb (14.0-18.0) g/dL Hct (42.0-52.0) % MCV (80.0-105.0) fl MCH (25.0-35.0) pg MCHC (31.0-37.0) g/dl RDW (11.5-14.5) % Plt Count (120.0-450.0) 10^3/uL MPV (7.0-11.0) fl Gran % (50.0-68.0) % Lymph % (Auto) (22.0-35.0) % [place] % (Auto) (1.0-6.0) % Eos % (Auto) (1.5-5.0) % Baso % (Auto) (0.0-3.0) % Gran # (1.4-6.5) Lymph # (1.2-3.4) [place] # (0.1-0.6) Eos # (0.0-0.7) Baso # (0.0-2.0) K/mm3 APTT 183.4 H* > 400.0 H* (25.1-36.5) Seconds Sodium 138 (132-148) mmol/L Potassium 4.0 (3.6-5.0) mmol/L Chloride 108 H (98-107) mmol/L Carbon Dioxide 24 (21-33) mmol/L Anion Gap 10 (10-20) BUN 26 H (7-21) mg/dL Creatinine 1.4 (0.8-1.5) mg/dl Est GFR ( Amer) 58 Est GFR (Non-Af Amer) 48 Random Glucose 86 (70-110) mg/dL Calcium 9.0 (8.4-10.5) mg/dL Total Bilirubin 0.5 (0.2-1.3) mg/dL AST 18 (17-59) U/L ALT 35 (7-56) U/L Alkaline Phosphatase 56 (38-126) U/L Troponin I ng/mL Total Protein 6.2 (5.8-8.3) g/dL Albumin 3.5 (3.0-4.8) g/dL Globulin 2.7 gm/dL Albumin/Globulin Ratio 1.3 (1.1-1.8) 06/18/17 06/17/17 06/17/17 Range/Units 04:00 22:00 16:35 WBC 4.4 L (4.5-11.0) 10^3/ul RBC 4.10 (3.5-6.1) 10^6/uL Hgb 11.9 L (14.0-18.0) g/dL Hct 35.6 L (42.0-52.0) % MCV 86.8 (80.0-105.0) fl MCH 29.0 (25.0-35.0) pg MCHC 33.4 (31.0-37.0) g/dl RDW 14.1 (11.5-14.5) % Plt Count 164 (120.0-450.0) 10^3/uL MPV 10.0 (7.0-11.0) fl Gran % 51.4 (50.0-68.0) % Lymph % (Auto) 32.3 (22.0-35.0) % [place] % (Auto) 10.3 H (1.0-6.0) % Eos % (Auto) 5.5 H (1.5-5.0) % Baso % (Auto) 0.5 (0.0-3.0) % Gran # 2.25 (1.4-6.5) Lymph # 1.4 (1.2-3.4) [place] # 0.5 (0.1-0.6) Eos # 0.2 (0.0-0.7) Baso # 0.02 (0.0-2.0) K/mm3 APTT 93.1 H (25.1-36.5) Seconds Sodium (132-148) mmol/L Potassium (3.6-5.0) mmol/L Chloride (98-107) mmol/L Carbon Dioxide (21-33) mmol/L Anion Gap (10-20) BUN (7-21) mg/dL Creatinine (0.8-1.5) mg/dl Est GFR ( Amer) Est GFR (Non-Af Amer) Random Glucose (70-110) mg/dL Calcium (8.4-10.5) mg/dL Total Bilirubin (0.2-1.3) mg/dL AST (17-59) U/L ALT (7-56) U/L Alkaline Phosphatase (38-126) U/L Troponin I 0.02 ng/mL Total Protein (5.8-8.3) g/dL Albumin (3.0-4.8) g/dL Globulin gm/dL Albumin/Globulin Ratio (1.1-1.8) Laboratory Results - last 24 hr 06/17/17 06/17/17 06/18/17 16:35 22:00 04:00 WBC 4.4 L RBC 4.10 Hgb 11.9 L Hct 35.6 L MCV 86.8 MCH 29.0 MCHC 33.4 RDW 14.1 Plt Count 164 MPV 10.0 Gran % 51.4 Lymph % (Auto) 32.3 [place] % (Auto) 10.3 H Eos % (Auto) 5.5 H Baso % (Auto) 0.5 Gran # 2.25 Lymph # 1.4 [place] # 0.5 Eos # 0.2 Baso # 0.02 APTT 93.1 H Sodium Potassium Chloride Carbon Dioxide Anion Gap BUN Creatinine Est GFR ( Amer) Est GFR (Non-Af Amer) Random Glucose Calcium Total Bilirubin AST ALT Alkaline Phosphatase Troponin I 0.02 Total Protein Albumin Globulin Albumin/Globulin Ratio 06/18/17 06/18/17 06/18/17 04:00 04:00 05:30 WBC RBC Hgb Hct MCV MCH MCHC RDW Plt Count MPV Gran % Lymph % (Auto) [place] % (Auto) Eos % (Auto) Baso % (Auto) Gran # Lymph # [place] # Eos # Baso # APTT > 400.0 H* 183.4 H* Sodium 138 Potassium 4.0 Chloride 108 H Carbon Dioxide 24 Anion Gap 10 BUN 26 H Creatinine 1.4 Est GFR ( Amer) 58 Est GFR (Non-Af Amer) 48 Random Glucose 86 Calcium 9.0 Total Bilirubin 0.5 AST 18 ALT 35 Alkaline Phosphatase 56 Troponin I Total Protein 6.2 Albumin 3.5 Globulin 2.7 Albumin/Globulin Ratio 1.3 EKG/Cardiology Studies: Cardiology / EKG Studies 06/18/17 09:52 ELECTROCARDIOGRAM Urgent Comment: 12 lead EKG upon arrival in unit Reason For Exam: post ptca 06/19/17 10:00 ELECTROCARDIOGRAM DAILY Comment: Reason For Exam: chest pain Attending/Attestation - Attestation I have personally seen and examined this patient.: Yes I have fully participated in the care of the patient.: Yes I have reviewed all pertinent clinical information: Yes Notes (Text): 06/18/17 16:52 86 yo with CAD, admitted for ACS, now s/p 2 TONY in LAD. hemodynamically and respiratory coronado stable. continue aspirin, plavix, statins, bb-ers. cardiolgoy follwo up ccm time 40 min
--- NOTE | 2017-06-18 13:23 | CARDCATH ---
PROCEDURE DATE: 06/18/2017 PROCEDURES: 1. Selective left and right coronary angiography. 2. Left ventriculography. 3. PCI of proximal LAD with drug-eluting stents. 4. Right femoral arteriography. 5. Mynx deployment. HISTORY: This is an 86-year-old man with multiple cardiac risk factors and recent non-ST segment elevation myocardial infarction. Recent stress test had suggested inferoapical ischemia; however, he refused catheterization initially. He was discharged and returned home later the same day with recurrent chest pain. Cardiac catheterization was strongly advised. INDICATIONS: As above. FINDINGS: Hemodynamics: The aortic pressure was 130/76, left ventricular pressure 130/16. CORONARY ANATOMY: 1. The left main stem was normal. 2. Left anterior descending artery had a long 90% stenosis in its proximal segment followed by 70% stenosis in the early mid portion of the vessel. Mild diffuse irregularities noted distally. The diagonal branches were diffusely diseased. 3. Ramus branch had a 50% proximal stenosis. 4. Left circumflex artery gave rise to 2 obtuse marginal branches. The distal circumflex artery had diffuse 70% stenosis present distally prior to bifurcation of 2 small distal vessels. 5. The right coronary artery was dominant and had 90% proximal stenosis. There is also 70% stenosis in the early distal segment of vessels as well as 80% stenosis in the posterolateral branch. LEFT VENTRICULOGRAPHY: Hand injection was performed in the left ventricle revealing normal wall motion of the ejection fraction of 60%. CORONARY INTERVENTION: The patient had been on IV heparin, additional 2000 units of intravenous heparin was administered. ACT was over 300 seconds during the procedure. A 3.5 EBU guide catheter is utilized and the lesion in the LAD successfully closed with the use of a O'Brien wire. Following this, additional inflations were performed with 2.5 x 15 mm balloon. Subsequently, a 3.0 x 30 mm Resolute drug-eluting was advanced into the proximal segment of the vessel and inflated to 12 atmospheres. There was 0% residual stenosis following the intervention. Just beyond the stent, the early mid portion vessel, a 2.75 x 8 mm Resolute drug-eluting stet was placed with overlap of the first stent at the site of the early mid lesion. This is inflated to 12 atmospheres. The balloon was withdrawn and inflated to 16 atmospheres for 30 seconds at the area of overlap. There is residual stenosis throughout the vessel and CHRISTIE grade 3 flow was present throughout. RIGHT FEMORAL ARTERIOGRAPHY: Right femoral arteriogram was performed revealing no evidence of significant disease and appropriate level of arterial puncture. The puncture was then closed with deployment of an Angio-Seal device. CONCLUSION: 1. Severe proximal left anterior descending, moderate mid left anterior descending and distal circumflex disease. 2. Severe proximal right coronary artery disease and distal right coronary artery disease as well. 3. Normal left ventricular function. 4. Successful percutaneous coronary intervention of proximal mid left anterior descending with drug eluting stents as described above. RECOMMENDATIONS: Aspirin and Plavix therapy will be continued for at least one year. Beta-crescencio and statin therapy will be continued as well. Stage PCI of the RCA lesions will be planned for early next week. Randy Marroquin MD cc: Manuel Nazario MD
[2017-06-19 06:24] LABS: BASO # 0.01 K/mm3 (0.0-2.0); BASO % 0.1 % (0.0-3.0); EOS # 0.1 (0.0-0.7); EOS % 1.5 % (1.5-5.0); GRAN # 5.22 (1.4-6.5); GRAN % 77.1 % (50.0-68.0); HEMATOCRIT 35.7 % (42.0-52.0); LYMPH # 0.9 (1.2-3.4); LYMPH % 12.9 % (22.0-35.0); MEAN CORPUSCULAR HEMOGLOBIN 29.2 pg (25.0-35.0); MEAN CORPUSCULAR HGB CONC 32.8 g/dl (31.0-37.0); MEAN PLATELET VOLUME 10.1 fl (7.0-11.0); MONO # 0.6 (0.1-0.6); MONO % 8.4 % (1.0-6.0); RED CELL DISTRIBUTION WIDTH 14.3 % (11.5-14.5); WHITE BLOOD COUNT 6.8 10^3/ul (4.5-11.0)
[2017-06-19 06:42] LABS: ALB/GLOB RATIO 1.3 (1.1-1.8); ALKALINE PHOSPHATASE 57 U/L (38-126); ALT/SGPT 23 U/L (7-56); AST/SGOT 22 U/L (17-59); BILIRUBIN,TOTAL 0.6 mg/dL (0.2-1.3); BLOOD UREA NITROGEN 24 mg/dL (7-21); CALCIUM 8.8 mg/dL (8.4-10.5); CARBON DIOXIDE 24 mmol/L (21-33); CHLORIDE 109 mmol/L (98-107); GFR AFRICAN-AMERICAN > 60; GLUCOSE,RANDOM 88 mg/dL (70-110); POTASSIUM 4.7 mmol/L (3.6-5.0); SODIUM 140 mmol/L (132-148); TOTAL PROTEIN 6.1 g/dL (5.8-8.3)
--- NOTE | 2017-06-19 07:46 | CP.PCM.PN ---
Subjective - Date & Time of Evaluation Date of Evaluation: 06/19/17 Time of Evaluation: 07:00 - Subjective Subjective: Stable in ICU. Events noted. S/P LAD TONY x2 yesterday. Residual severe RCA disease>PCI RCA Wednesday planned.. No CP or SOB. + hematuria reported. V/S noted. Sinus lance. PE: Lungs: clear Cor: S1S2 Abd.: soft Ext.: no edema Neuro.: alert I/O= 1600/1175 recorded Labs 06/19 noted cardiac cath 06/18: noted Objective - Vital Signs/Intake and Output Vital Signs (last 24 hours): Temp Pulse Resp BP Pulse Ox 97.7 F 55 L 16 145/67 98 06/18/17 20:00 06/19/17 06:20 06/19/17 06:20 06/19/17 06:00 06/19/17 06:20 Intake and Output: 06/19/17 06/19/17 06:59 18:59 Intake Total 1600 Output Total 1175 Balance 425 - Medications Medications: Current Medications Acetaminophen (Tylenol 325mg Tab) 650 mg PO Q6H PRN PRN Reason: Fever >100.4 F or headache Last Admin: 06/18/17 18:56 Dose: 650 mg Aspirin (Aspirin Chewable) 81 mg PO DAILY [facility] Last Admin: 06/18/17 10:49 Dose: Not Given Atorvastatin Calcium (Lipitor) 40 mg PO DAILY [facility] Last Admin: 06/18/17 10:58 Dose: 40 mg Clopidogrel Bisulfate (Plavix) 75 mg PO DAILY [facility] Last Admin: 06/18/17 10:51 Dose: Not Given Lisinopril (Zestril) 20 mg PO DAILY [facility] Last Admin: 06/18/17 17:02 Dose: 20 mg Metoprolol Tartrate (Lopressor) 25 mg PO BID [facility] Last Admin: 06/18/17 18:48 Dose: 25 mg Pantoprazole Sodium (Protonix Inj) 40 mg IVP DAILY [facility] Last Admin: 06/18/17 10:58 Dose: 40 mg - Labs Labs: 06/19/17 05:30 06/19/17 05:30 PT 19.0 SECONDS (9.4-12.5) H 06/17/17 12:50 INR 1.71 (0.93-1.08) H 06/17/17 12:50 APTT 183.4 Seconds (25.1-36.5) H* 06/18/17 05:30 Assessment and Plan - Assessment and Plan (Free Text) Assessment: Chest Pain/Severe CAD/PCI LAD TONY x2 06/18/17 Residual severe RCA lesion. PCI RCA planned for Wednesday Hematuria NSTEMI 09/11 PAF HBP Hypothyroidism Migraine HERNANDEZ GERD BPH Cataract and retinal surgery GB surgery Depression Diminished hearing Plan: ASA, and Plavix (min. 1 year) PCI RCA planned for Wednesday. Hold A/C for gross hematuria Evaluation for hematuria: U/A, C+S, abd. U/S ordered. Uro consultation also. OOB to chair tel bed Monitor labs, H/H, urine studies, I/O, sats., trop., etc
--- NOTE | 2017-06-19 09:25 | US ---
HISTORY: gross hematuria COMPARISON: None. TECHNIQUE: Sonographic evaluation of the abdomen. FINDINGS: LIVER: Measures 13.25 x 10.96 cm. Increased echogenicity of the liver parenchyma. No mass. No intrahepatic bile duct dilatation. GALLBLADDER: Unremarkable. No gallstones. COMMON BILE DUCT: Measures 3.5 mm. No stones. No dilatation. PANCREAS: Not visualized due to bowel gas RIGHT KIDNEY: Measures 9.93 x 5.88 x 5.24cm. Normal echogenicity. No calculus, mass, or hydronephrosis. LEFT KIDNEY: Measures 9.58 x 4.86 x 5.08cm. Normal echogenicity. No calculus, mass, or hydronephrosis. SPLEEN: Normal in size and contour. No mass. AORTA: No aneurysmal dilatation. IVC: Unremarkable. OTHER FINDINGS: None. IMPRESSION: Unremarkable abdominal sonogram.
--- NOTE | 2017-06-19 09:35 | US ---
PROCEDURE: Bladder ultrasound HISTORY: gross hematuria COMPARISON: TECHNIQUE: FINDINGS: The bladder volume is 523 mL prevoid. The postvoid residual is 168 mL. The bladder has an abnormal contour with wall thickening and multiple diverticula. There is also some echogenic debris within the bladder which may represent blood. The prostate volume is 89 mL IMPRESSION: Multiple bladder diverticula with wall thickening. Echogenic material layering within the bladder, probable blood. Significant post void residual.
--- NOTE | 2017-06-19 09:47 | CARD ---
APPROVED REPORT EKG Measurement Heart [id number] <Conclusion> Sinus bradycardia with occasional premature ventricular complexes Right bundle branch block Leftward axis No change
--- NOTE | 2017-06-19 10:26 | CARD ---
APPROVED REPORT EKG Measurement Heart [id number] <Conclusion> Sinus bradycardia APC Right bundle branch block No change
--- NOTE | 2017-06-19 13:10 | CON ---
DATE: 06/19/2017 CHIEF COMPLAINT: Hematuria. HISTORY OF PRESENT ILLNESS: This is an 86-year-old man with history of AFib, hypertension, coronary artery disease who underwent a cardiac catheterization with stent placement several days ago. He currently is on Plavix and aspirin. He is scheduled to have another artery stented on Wednesday. According to the nurses, he has had hematuria. The patient says he has no dysuria. No fever or chills. He is not on any BPH medicines at this time. He had been on Eliquis prior to admission, now is on as mentioned Plavix and aspirin. His INR was 1.74. His PTT was over 400. No flank pain. PAST MEDICAL HISTORY: Significant for atrial fibrillation, hypertension, hyperlipidemia and coronary artery disease. SOCIAL HISTORY: The patient does not drink. He has been a smoker for many years. FAMILY HISTORY: Noncontributory. ALLERGIES: HE HAS NO ALLERGIES. MEDICATIONS: At home, Lipitor, Flomax, digoxin, lisinopril, Toprol and Cardizem. REVIEW OF SYSTEMS: Currently, no symptoms referable to the head, eyes, ears, nose or throat: No current cardiac or respiratory symptoms, no GI symptoms. No psychiatric or dermatologic symptoms. PHYSICAL EXAMINATION: GENERAL: Shows him to be well oriented x3. VITAL SIGNS: He is afebrile, pulse 61, blood pressure 149/105, normocephalic. Sclerae clear. Conjunctivae noninjected. NECK: Supple, no adenopathy. BACK: No CVA pain. No hepatosplenomegaly, rebound or guarding. There is some suprapubic fullness after the patient voided 125 mL of old bloody urine with no clots. GENITALIA: Penis, testicles, cord, epididymis all normal. I did not do rectal at this time. SKIN: No peripheral edema. LABORATORY DATA: Shows a white count 6800, hemoglobin 11.7. His INR is 1.7. His PTT was greater than 400 which now is 183. His creatinine is 1.2 with a BUN of 24. The patient has not been on Flomax while admitted here. I am putting him back on Flomax. I inserted a Rojas catheter. His postvoid residual was over 300 mL of old blood in urine with no clots and looks like it is clearing already. I would leave the Rojas catheter indwelling. A 16-Bengali Rojas catheter was placed when he is recovered from his second angioplasty and little more mobile. I will give him a voiding trial and see if we can get an acceptable postvoid residual at which point he would not need a Rojas catheter. I also called his daughter who was an SCHOOL PSYCHOLOGIST ASSISTANT nurse a number of years ago and explained to her what I found, what was done and what the plan was. Jaden Martin MD
[2017-06-19 14:27] LABS: PH,URINE 6.5 (4.7-8.0); URINE BILIRUBIN MODERATE (NEGATIVE); URINE BLOOD LARGE (NEGATIVE); URINE GLUCOSE (UA) NEGATIVE (NEGATIVE); URINE KETONE TRACE mg/dL (NEGATIVE); URINE LEUKOCYTE ESTERASE TRACE Leu/uL (NEGATIVE); URINE PROTEIN >=300 mg/dL (<30 mg/dL)
[2017-06-19 14:41] LABS: URINE APPEARANCE TURBID (CLEAR); URINE COLOR LIGHT BROWN (YELLOW)
[2017-06-19 14:44] LABS: URINE BACTERIA MOD (NEG); URINE RBC TNTC /hpf (0-2)
[2017-06-19 14:46] LABS: URINE EPITHELIAL CELLS 0 - 2 /hpf (0-5)
[2017-06-20 07:07] LABS: BASO # 0.01 K/mm3 (0.0-2.0); BASO % 0.1 % (0.0-3.0); EOS # 0.1 (0.0-0.7); EOS % 1.7 % (1.5-5.0); GRAN # 4.95 (1.4-6.5); GRAN % 71.5 % (50.0-68.0); LYMPH # 1.1 (1.2-3.4); LYMPH % 15.6 % (22.0-35.0); MEAN CELL VOLUME 88.6 fl (80.0-105.0); MEAN CORPUSCULAR HEMOGLOBIN 29.1 pg (25.0-35.0); MEAN CORPUSCULAR HGB CONC 32.9 g/dl (31.0-37.0); MEAN PLATELET VOLUME 10.4 fl (7.0-11.0); MONO # 0.8 (0.1-0.6); MONO % 11.1 % (1.0-6.0); RED CELL DISTRIBUTION WIDTH 14.3 % (11.5-14.5); WHITE BLOOD COUNT 6.9 10^3/ul (4.5-11.0)
[2017-06-20 07:27] LABS: ALB/GLOB RATIO 1.2 (1.1-1.8); BILIRUBIN,TOTAL 0.6 mg/dL (0.2-1.3); CALCIUM 8.8 mg/dL (8.4-10.5); POTASSIUM 4.6 mmol/L (3.6-5.0); TOTAL PROTEIN 5.5 g/dL (5.8-8.3)
[2017-06-20 07:34] LABS: TROPONIN I 0.47 ng/mL
--- NOTE | 2017-06-20 07:40 | CP.PCM.PN ---
Subjective - Date & Time of Evaluation Date of Evaluation: 06/20/17 Time of Evaluation: 07:00 - Subjective Subjective: Stable on 3R. No CP or SOB. Rojas in place. V/S noted. RSR PE: Lungs: clear Cor: S1S2 Abd.: soft Ext.: no edema Neuro.: alert I/O= N/A Labs 06/19 noted. Trop = 1.28 cardiac cath 06/18: noted Objective - Vital Signs/Intake and Output Vital Signs (last 24 hours): Temp Pulse Resp BP Pulse Ox 98.6 F 64 18 116/46 L 100 06/20/17 00:00 06/20/17 06:00 06/20/17 00:00 06/20/17 00:00 06/20/17 00:00 Intake and Output: 06/20/17 06/20/17 06:59 18:59 Intake Total 320 Balance 320 - Medications Medications: Current Medications Acetaminophen (Tylenol 325mg Tab) 650 mg PO Q6H PRN PRN Reason: Fever >100.4 F or headache Last Admin: 06/19/17 17:44 Dose: 650 mg Aspirin (Aspirin Chewable) 81 mg PO DAILY [facility] Last Admin: 06/19/17 09:32 Dose: 81 mg Atorvastatin Calcium (Lipitor) 40 mg PO DAILY [facility] Last Admin: 06/19/17 09:31 Dose: 40 mg Clopidogrel Bisulfate (Plavix) 75 mg PO DAILY [facility] Last Admin: 06/19/17 09:31 Dose: 75 mg Lisinopril (Zestril) 20 mg PO DAILY [facility] Last Admin: 06/19/17 09:31 Dose: 20 mg Metoprolol Tartrate (Lopressor) 25 mg PO BID [facility] Last Admin: 06/19/17 18:00 Dose: 25 mg Ondansetron HCl (Zofran Inj) 4 mg IVP Q6H PRN PRN Reason: Nausea/Vomiting Last Admin: 06/19/17 20:12 Dose: 4 mg Pantoprazole Sodium (Protonix Inj) 40 mg IVP DAILY [facility] Last Admin: 06/19/17 14:51 Dose: 40 mg Tamsulosin HCl (Flomax) 0.4 mg PO DAILY [facility] Last Admin: 06/19/17 14:52 Dose: 0.4 mg - Labs Labs: 06/19/17 05:30 06/20/17 06:30 PT 19.0 SECONDS (9.4-12.5) H 06/17/17 12:50 INR 1.71 (0.93-1.08) H 06/17/17 12:50 APTT 183.4 Seconds (25.1-36.5) H* 06/18/17 05:30 Assessment and Plan - Assessment and Plan (Free Text) Assessment: Chest Pain/Severe CAD/PCI LAD TONY x2 06/18/17 Residual severe RCA lesion. PCI RCA planned for Wednesday Hematuria NSTEMI 09/11 PAF HBP Hypothyroidism GERD BPH/Urinary retention Diminished hearing Cataracts Plan: Await AM labs. ASA, and Plavix (min. 1 year) PCI RCA planned for Wednesday. Hold A/C for gross hematuria Evaluation for hematuria/Rojas for now. As per Uro. OOB to chair as avinash Monitor labs, H/H, urine studies, I/O, sats., etc
[2017-06-20] MEDS ORDERED: Nitroglycerin 2% Ointment Foilpak UD TOP SCH (18:00)
[2017-06-20] MEDS: Nitroglycerin 2% Ointment Foilpak UD TOP SCH (19:19)
[2017-06-20] MEDS ORDERED: Nitroglycerin 50mg in D5W 50 MG/250 ML BOTTLE IV PRN (20:48)
--- NOTE | 2017-06-20 21:19 | CP.PCM.PN ---
Subjective - Date & Time of Evaluation Date of Evaluation: 06/20/17 Time of Evaluation: 21:19 - Subjective Subjective: called by nurse to see pt with recent NM post cardiac cath with stent placement is c/o cp.pt states he has been having cp since x3 day . parasternal constant 8/10 intensity no sob . no n/v .nurse has called [facility] for the same pain dr garcia and dr gorman for the same pain.pt had ekg done and nitro was given. Objective - Vital Signs/Intake and Output Vital Signs (last 24 hours): Temp Pulse Resp BP Pulse Ox 98.1 F 66 16 148/76 99 06/20/17 12:00 06/20/17 18:07 06/20/17 12:00 06/20/17 18:07 06/20/17 06:00 - Medications Medications: Current Medications Acetaminophen (Tylenol 325mg Tab) 650 mg PO Q6H PRN PRN Reason: Fever >100.4 F or headache Last Admin: 06/20/17 18:27 Dose: 650 mg Aspirin (Aspirin Chewable) 81 mg PO DAILY [facility] Last Admin: 06/20/17 10:08 Dose: 81 mg Atorvastatin Calcium (Lipitor) 40 mg PO DAILY [facility] Last Admin: 06/20/17 10:08 Dose: 40 mg Clopidogrel Bisulfate (Plavix) 75 mg PO DAILY [facility] Last Admin: 06/20/17 10:06 Dose: 75 mg Nitroglycerin/Dextrose (Nitroglycerin 50 Mg/250 Ml D5w) 50 mg in 250 mls @ 3 mls/hr IV .Q24H PRN; Protocol; 10 MCG/MIN PRN Reason: chest pain Lisinopril (Zestril) 20 mg PO DAILY [facility] Last Admin: 06/20/17 10:06 Dose: 20 mg Metoprolol Tartrate (Lopressor) 25 mg PO BID [facility] Last Admin: 06/20/17 18:07 Dose: 25 mg Nitroglycerin (Nitro-Bid 2% Oint) 1 ea TOP Q6 [facility] Last Admin: 06/20/17 19:19 Dose: 1 ea Ondansetron HCl (Zofran Inj) 4 mg IVP Q6H PRN PRN Reason: Nausea/Vomiting Last Admin: 06/20/17 10:06 Dose: 4 mg Pantoprazole Sodium (Protonix Inj) 40 mg IVP DAILY [facility] Last Admin: 06/20/17 10:06 Dose: 40 mg Tamsulosin HCl (Flomax) 0.4 mg PO DAILY [facility] Last Admin: 06/20/17 10:06 Dose: 0.4 mg - Labs Labs: 06/20/17 06:30 06/20/17 06:30 PT 19.0 SECONDS (9.4-12.5) H 06/17/17 12:50 INR 1.71 (0.93-1.08) H 06/17/17 12:50 APTT 183.4 Seconds (25.1-36.5) H* 06/18/17 05:30 - Constitutional Appears: No Acute Distress - Head Exam Head Exam: NORMOCEPHALIC - Eye Exam Eye Exam: Normal appearance Pupil Exam: PERRL - ENT Exam ENT Exam: Mucous Membranes Moist - Neck Exam Neck Exam: Full ROM - Respiratory Exam Respiratory Exam: NORMAL BREATHING PATTERN - Cardiovascular Exam Cardiovascular Exam: RRR, +S1, +S2 - GI/Abdominal Exam GI & Abdominal Exam: Normal Bowel Sounds - Rectal Exam Rectal Exam: Deferred - Extremities Exam Extremities Exam: Full ROM - Neurological Exam Neurological Exam: Alert, Awake, Oriented x3 - Psychiatric Exam Psychiatric exam: Normal Affect - Skin Skin Exam: Dry, Warm Assessment and Plan - Assessment and Plan (Free Text) Assessment: chest pain . s/p cardiac cath .with stent placed in and in am has to get again other stent for RCA. HX OF CAD. Plan: ekg . pt was started on nitro drip and is already on plavix and asprin.
[2017-06-21] MEDS: Nitroglycerin 2% Ointment Foilpak UD TOP SCH ×3 (01:00→12:02)
[2017-06-21 07:08] LABS: INR 1.25 (0.93-1.08); PARTIAL THROMBOPLASTIN TIME 30.6 Seconds (25.1-36.5)
[2017-06-21 07:38] LABS: TROPONIN I 0.24 ng/mL
--- NOTE | 2017-06-21 08:14 | CP.PCM.PN ---
Subjective - Date & Time of Evaluation Date of Evaluation: 06/21/17 Time of Evaluation: 07:00 - Subjective Subjective: Stable on 3R. He had chest pain on and off yesterday. It became more severe and IV NTG was started in addition to NTG and nitrolpaste having been given. He has min CP this AM. No SOB. V/S noted. RSR PE: Lungs: clear Cor: S1S2 Abd.: soft Ext.: no edema Neuro.: alert I/O= 390/825 recorded Labs 06/20 noted. Cr.= 1.4, Trop = 1.28, 0.47 and 0.24 cardiac cath 06/18: noted ECG done last evening: Dr. Dominique Coley told me that it was unchanged. It is not in the system yet for my review this AM. Urine C+S: NG Objective - Vital Signs/Intake and Output Vital Signs (last 24 hours): Temp Pulse Resp BP Pulse Ox 98.6 F 67 18 136/42 L 98 06/21/17 06:00 06/21/17 06:00 06/21/17 06:00 06/21/17 06:00 06/21/17 06:00 Intake and Output: 06/21/17 06/21/17 06:59 18:59 Intake Total 390 Output Total 825 Balance -435 - Medications Medications: Current Medications Acetaminophen (Tylenol 325mg Tab) 650 mg PO Q6H PRN PRN Reason: Fever >100.4 F or headache Last Admin: 06/20/17 23:27 Dose: 650 mg Aspirin (Aspirin Chewable) 81 mg PO DAILY [facility] Last Admin: 06/20/17 10:08 Dose: 81 mg Atorvastatin Calcium (Lipitor) 40 mg PO DAILY [facility] Last Admin: 06/20/17 10:08 Dose: 40 mg Clopidogrel Bisulfate (Plavix) 75 mg PO DAILY [facility] Last Admin: 06/20/17 10:06 Dose: 75 mg Nitroglycerin/Dextrose (Nitroglycerin 50 Mg/250 Ml D5w) 50 mg in 250 mls @ 3 mls/hr IV .Q24H PRN; Protocol; 10 MCG/MIN PRN Reason: chest pain Last Admin: 06/20/17 21:15 Dose: 10 mcg/min, 3 mls/hr Lisinopril (Zestril) 20 mg PO DAILY [facility] Last Admin: 06/20/17 10:06 Dose: 20 mg Metoprolol Tartrate (Lopressor) 25 mg PO BID [facility] Last Admin: 06/20/17 18:07 Dose: 25 mg Nitroglycerin (Nitro-Bid 2% Oint) 1 ea TOP Q6 [facility] Last Admin: 06/21/17 05:27 Dose: 1 ea Ondansetron HCl (Zofran Inj) 4 mg IVP Q6H PRN PRN Reason: Nausea/Vomiting Last Admin: 06/20/17 10:06 Dose: 4 mg Pantoprazole Sodium (Protonix Inj) 40 mg IVP DAILY [facility] Last Admin: 06/20/17 10:06 Dose: 40 mg Tamsulosin HCl (Flomax) 0.4 mg PO DAILY [facility] Last Admin: 06/20/17 10:06 Dose: 0.4 mg - Labs Labs: 06/20/17 06:30 06/20/17 06:30 PT 13.8 SECONDS (9.4-12.5) H 06/21/17 06:30 INR 1.25 (0.93-1.08) H 06/21/17 06:30 APTT 30.6 Seconds (25.1-36.5) 06/21/17 06:30 Assessment and Plan - Assessment and Plan (Free Text) Assessment: Chest Pain/Severe CAD/PCI LAD TONY x2 06/18/17 Residual severe RCA lesion. PCI RCA planned for noon today Recurrring chest pain/Small troponin leak following PCI LAD, trending down. Hematuria NSTEMI 09/11 PAF HBP Hypothyroidism GERD BPH/Urinary retention Diminished hearing Cataracts Plan: Continue IV NTG for now. ASA, and Plavix (min. 1 year) PCI RCA later today. Additional recs to follow. Hold A/C for gross hematuria Evaluation for hematuria/Rojas for now. As per Uro. OOB to chair as avinash Monitor labs, H/H, urine studies, I/O, sats., etc
[2017-06-21] MEDS ORDERED: Lidocaine 2% Inj (20ml) ONE (11:44)
[2017-06-21] MEDS ORDERED: Iohexol 350mgl/ml 50 ML ONE (11:45)
[2017-06-21] MEDS ORDERED: Midazolam 2 MG/2 ML VIAL ONE (13:04)
[2017-06-21] MEDS ORDERED: Sodium Chloride 0.9% 1,000 ML IV SCH (13:45)
--- NOTE | 2017-06-21 15:10 | CARDCATH ---
PROCEDURE DATE: 06/21/2017 PROCEDURE: PCI of proximal RCA. HISTORY: This is an 86-year-old man with known coronary artery disease and recent unstable angina, brought back now for staged intervention of his RCA. He underwent PCI of his LAD several days earlier. Indication as above. FINDINGS: 1. Aortic pressure was 130/76. 2. Left ventricular pressure was not measured. 3. Selective coronary angiography revealed a severe 90% proximal stenosis. There was mild irregularities in the mid portion. In the distal segment of the vessel, there was a 50% lesion present. Following this, there was a 60% lesion at the takeoff of the PDA and PLV branches. The decision was made to treat only the proximal lesion and treat the rest medically. A 4000 units of intravenous heparin was administered and the ACT was over 300 seconds during the procedure. The lesion in the RCA was crossed successfully with a [place] wire. Following this, additional inflations were performed with 2.5 x 8 mm balloon. Subsequently, a 3.0 x 9 mm Resolute drug-eluting stent was placed proximally in the vessel. There is 0% residual stenosis at the site of the lesion. CHRISTIE grade III flow was present before and after the intervention. The distal RCA lesions remained unchanged following intervention. Left femoral arteriogram reveals no evidence of significant disease and appropriate level of arterial punch. The puncture site was then closed with deployment of a Mynx device. RECOMMENDATIONS: Aspirin and Plavix therapy will be continued for the next year. Standard risk factor control will be advised. Medical therapy will be continued as well. Randy Marroquin MD
--- NOTE | 2017-06-21 18:48 | CARD ---
APPROVED REPORT EKG Measurement Heart [id number] <Conclusion> Normal sinus rhythm Right bundle branch block Abnormal ECG
--- NOTE | 2017-06-21 20:56 | PN ---
DATE: 06/19/2017 SUBJECTIVE: The patient is an 86-year-old male who was admitted to [facility] with unstable angina. He was noted to have an apical ischemia from a positive thallium stress done approximately 2 days prior to this admission. He was seen and evaluated by Dr. Marroquin, underwent coronary catheterization yesterday. The patient's condition was surprisingly worse than suggested by his previous workup of echocardiogram and thallium stress test. The patient had a rather large stenosis of the LAD in which 2 stents were placed yesterday. Today, he is stable and in 2 days, on Wednesday, we are planning to return to the labor relations analyst for stenting of the right coronary artery lesion. PHYSICAL EXAMINATION: GENERAL: When seen today, the patient is comfortable, he is resting comfortable. VITAL SIGNS: Stable. LABORATORY DATA: CBC and chemistries are unremarkable. ASSESSMENT AND PLAN: The patient developed gross dark hematuria. Heparin has been discontinued. With Dr. Marroquin in agreement, he is to be sent for ultrasound of his abdomen and pelvis to evaluate his kidneys and bladder. We are continuing to follow the patient closely. Dr. Martin the Urologist is called for consultation. Manuel Nazario MD
--- NOTE | 2017-06-21 23:22 | PN ---
DAILY PROGRESS NOTE DATE: 06/20/2017 SUBJECTIVE: The patient is an 86-year-old male who was admitted to the [facility] 3 days ago with unstable angina. He was known to have a positive thallium stress test and history of atrial fibrillation. He was evaluated by Dr. Marroquin, his clean in places operator and taken to the laboratory machinist where 2 stents were placed in a critical lesion of the proximal left anterior descending. The patient is to return to the laboratory machinist on Wednesday for stenting of another critical lesion of the right coronary artery. Yesterday, the patient developed gross hematuria. Ultrasound of the abdomen and bladder was ordered, which showed diverticula of the urinary bladder; however, no mass lesions could be seen. Consultation with Dr. Martin was performed. His note is appreciated. We will keep Rojas in for now and possibly when the patient stabilizes after his catheterization tomorrow, we could discontinue the Rojas catheter for a voiding trial. The patient is feeling well. He denies any complaints when seen today. He is resting comfortably. PHYSICAL EXAMINATION: GENERAL: The patient is relatively unchanged on physical exam. VITAL SIGNS: His blood pressure is 113/56, heart rate is 65, and he is afebrile. HEART: Irregularly irregular. LUNGS: Clear. ABDOMEN: Soft and nontender. LABORATORY DATA: His urine is negative, no growth on culture and sensitivities. CBC and serum chemistries are unremarkable. ASSESSMENT AND PLAN: So, the patient will be going for catheterization in the morning and stenting of the right coronary artery. Rojas catheter is left in place. There is bloody urine in the catheter tubing, it appears to be old and dark. He will be evaluated in the morning, post catheterization. Manuel Nazario MD
--- NOTE | 2017-06-21 23:41 | HP ---
HISTORY OF PRESENT ILLNESS: The patient is an 86-year-old male, who was admitted with chest pain. He was discharged from [facility] just 2 hours ago after a short stay for chest pain. In his last admission yesterday, the patient was tested positive on a stress test, which suggested some apical ischemia. However, the patient deferred catheterization and preferred to go home on medical therapy. He arrived home and within 2 hours developed chest pain, the family called saying that he was agitated in pain, therefore, he returned to the emergency room and is admitted. PAST MEDICAL HISTORY: The patient is known to have past medical history positive for atrial fibrillation, hypertension, hyperlipidemia, benign prostatic hypertrophy, and status post cataract surgery. SOCIAL HISTORY: He never smoked. He is a nonalcoholic drinker. ALLERGIES: THE PATIENT HAS NO KNOWN MEDICAL ALLERGIES. MEDICATIONS: His medications at the time of admission included simvastatin 20 mg once a day, Flomax 0.4 mg once a day, digoxin 0.125 mg once a day, lisinopril 20 mg once a day, metoprolol 100 mg twice a day, and diltiazem CD 120 mg once a day. REVIEW OF SYSTEMS: Otherwise, unremarkable. PHYSICAL EXAMINATION: VITAL SIGNS: Blood pressure is 160/90 and heart rate is 60. He is afebrile at 97.6 degrees Fahrenheit. HEAD, EYES, EARS, NOSE, AND THROAT: Unremarkable. NECK: Supple with no lymphadenopathy and no goiter. LUNGS: Clear to auscultation and percussion. HEART: Irregularly irregular. ABDOMEN: Soft and nontender. EXTREMITIES: Free of cyanosis, clubbing, or edema. NEUROLOGIC: The patient is awake, alert, and oriented with no focal neurological signs. He does seem uncomfortable from the chest pain. DIAGNOSTIC DATA: His EKG showed sinus bradycardia with right bundle branch block and no acute ST-T wave changes. The chest x-ray was done and it showed perihilar and infrahilar areas of possible atelectasis or really infiltrates. LABORATORY DATA: White blood cell count was 5.3 and hemoglobin and hematocrit are 13.2 and 39.5 respectively. Sodium is normal at 140, potassium is normal at 4.1, BUN is slightly elevated at 26 with a creatinine of 1.5. His troponin is 0.02 and BNP is 147. IMPRESSION AND PLAN: The patient with known coronary artery disease with a recent positive stress test, he is admitted with unstable angina. Dr. Marroquin and Dr. Cornejo, his team primary care physician are called for consultation. The patient is being considered for admission to the Intensive Care Unit. We will follow the patient closely to be discussed with Dr. Marroquin and Dr. Cornejo. Manuel Nazario MD
[2017-06-22 07:02] LABS: BASO # 0.01 K/mm3 (0.0-2.0); BASO % 0.2 % (0.0-3.0); EOS # 0.1 (0.0-0.7); EOS % 1.4 % (1.5-5.0); GRAN # 4.09 (1.4-6.5); GRAN % 70.7 % (50.0-68.0); LYMPH # 0.9 (1.2-3.4); LYMPH % 16.3 % (22.0-35.0); MEAN CELL VOLUME 88.3 fl (80.0-105.0); MEAN CORPUSCULAR HGB CONC 32.9 g/dl (31.0-37.0); MEAN PLATELET VOLUME 10.3 fl (7.0-11.0); MONO # 0.7 (0.1-0.6); MONO % 11.4 % (1.0-6.0); WHITE BLOOD COUNT 5.8 10^3/ul (4.5-11.0)
[2017-06-22 07:30] LABS: CALCIUM 8.5 mg/dL (8.4-10.5); POTASSIUM 4.3 mmol/L (3.6-5.0)
--- NOTE | 2017-06-22 09:09 | PN ---
DATE: 06/18/2017 SUBJECTIVE: The patient is an 86-year-old male, who was admitted yesterday 2 hours after being discharged from [facility] with unstable angina. He is known to have a positive thallium stress test for about 2 to 3 days ago showing probable apical ischemia. The patient is also known to have history of atrial fibrillation. He was admitted and seen by cardiology. This morning, he was taken to the cardiac cath tech by Dr. Marroquin, and the patient had quite severe disease, 2 stents were placed in the proximal left anterior descending artery. He also had a proximal stenosis of the right coronary artery. The patient will be stabilized over the weekend with a plan of returning to cardiac cath tech for PTCA of the right coronary artery on Wednesday. Manuel Nazario MD TAY
[2017-06-22] MEDS: Pantoprazole 40 mg EC Tab PO SCH (09:31)
--- NOTE | 2017-06-22 10:55 | PN ---
DATE: 06/21/2017 SUBJECTIVE: The patient is an 86-year-old male who is admitted to [facility] 4 days ago with unstable angina. He is known to have a history of coronary artery disease and atrial fibrillation. Three days ago, he was taken to the catheterization lab by Dr. Marroquin where he was found to have occlusions in the LAD as well as the right coronary artery. Two stents were placed in the LAD. The patient tolerated the procedure well. Postprocedure, he was started on heparin, however, developed gross hematuria. The heparin was discontinued, ultrasound of the abdomen showed diverticula of the bladder wall with probably dry blood along the bladder wall. He was seen and evaluated by Dr. Martin. He was stabilized over the weekend. This morning, returned to the mine laborer and the stenosis in the right coronary artery was stented by Dr. Marroquin. When seen today, the patient is comfortable in good spirits. Denies any chest pain, nausea, or vomiting. PHYSICAL EXAMINATION: VITAL SINGS: His blood pressure is 167/84, heart rate is 71, and he is afebrile. LUNGS: His lungs are clear anteriorly. HEART: Irregularly irregular. ABDOMEN: Soft and nontender. GENITOURINARY: Urine in the Rojas catheter tubing shows clearing is finally pablo in color. LABORATORY DATA: Morning laboratory shows the white blood cell count to be 6.9, hemoglobin is 10.2, hematocrit is 31.0. Sodium is 139, potassium 4.6, blood urea nitrogen 24, creatinine 1.4, glucose is 88. ASSESSMENT AND PLAN: So plan is now to discontinue the Rojas catheter today for a voiding trial as per Dr. Martin after which the patient will be reevaluated and discharged to home to be considered. Manuel Nazario MD
--- NOTE | 2017-06-22 13:00 | PN ---
DATE: 06/22/2017 SUBJECTIVE: The patient is seen lying in bed, on telemetry. He is comfortable at the present time. He denies any chest pain. He underwent staged PCI of his RCA yesterday. The Rojas catheter remains in place. MEDICATIONS: His current medications include aspirin, Plavix, Flomax, Lipitor 40 mg daily, metoprolol 25 mg b.i.d., Protonix 40 mg daily, Zestril 20 mg daily. OBJECTIVE: GENERAL: He is an elderly man who appears comfortable at the present time. VITAL SIGNS: His blood pressure is 128/58 with a pulse of 70 and sinus, respirations are 14. He is afebrile. HEENT: No JVD. CHEST: Clear to auscultation and percussion. HEART: No pathological murmur or gallops observed. ABDOMEN: Soft, nontender, normoactive bowel sounds. EXTREMITIES: No edema. The left groin has a small hematoma, but is otherwise unremarkable. DIAGNOSTIC DATA: Potassium is 4.3, BUN and creatinine of 30 and 1.4. Hemoglobin and hematocrit 9.2 and 28.0 with white count of 5.8, platelet count is 160,000. IMPRESSION: 1. Recent acute coronary artery syndrome, status post staged percutaneous coronary intervention of right coronary artery and left anterior descending. 2. Urinary retention, workup in progress. 3. Anemia possibly due to some blood loss at his catheterization procedures, both were fairly innocuous in that respect. RECOMMENDATIONS: His current medications should continue. Repeat CBC and stool guaiac will be ordered. Once cleared from Urology standpoint, he appears stable from cardiac standpoint for discharged home. Outpatient followup will be arranged. Radny Marroquin MD
[2017-06-22] MEDS ORDERED: Morphine 2 mg/ml ISec IVP STA (14:32)
--- NOTE | 2017-06-22 19:43 | CARD ---
APPROVED REPORT EKG Measurement Heart [id number] <Conclusion> Normal sinus rhythm with sinus arrhythmia Right bundle branch block Abnormal ECG
--- NOTE | 2017-06-22 19:47 | CARD ---
APPROVED REPORT EKG Measurement Heart [id number] <Conclusion> Sinus rhythm with premature atrial complexes Right bundle branch block Abnormal ECG
--- NOTE | 2017-06-22 20:11 | CARD ---
APPROVED REPORT EKG Measurement Heart [id number] <Conclusion> Sinus rhythm with premature atrial complexes Right bundle branch block Abnormal ECG
[2017-06-23 06:00] LABS: HEMATOCRIT 27.9 % (42.0-52.0); MEAN CELL VOLUME 87.7 fl (80.0-105.0); MEAN CORPUSCULAR HEMOGLOBIN 29.6 pg (25.0-35.0); MEAN CORPUSCULAR HGB CONC 33.7 g/dl (31.0-37.0); MEAN PLATELET VOLUME 10.2 fl (7.0-11.0); RED CELL DISTRIBUTION WIDTH 13.9 % (11.5-14.5)
--- NOTE | 2017-06-23 08:34 | PN ---
DATE: 06/22/2017 SUBJECTIVE: The patient was seen this Wednesday at lunch time. He was resting comfortably in bed in room 273, bed 1. Awake, alert and in good spirits. He underwent his second cardiac catheterization this hospital stay yesterday. Postoperatively, he is doing well. Arterial puncture site is clean. The patient denies chest pain, palpitations, diaphoresis, discomfort. PHYSICAL EXAMINATION: VITAL SIGNS: Review of vital sings are unremarkable. Heart rate is borderline low in the 60's. I' s and O's are good. LABORATORY DATA: Labs are acceptable except for the hematuria, which appears to be improving. IMPRESSION: 1. Coronary artery disease with acute coronary syndrome and angina on presentation. 2. Hematuria. 3. Urinary retention. PLAN: A voiding trial has not been performed as of yet, but will be done this afternoon. The patient voids adequately and urinalysis is acceptable. The patient will be ready for discharge to home perhaps as early as tomorrow from the perspective of Urology as well as Cardiology. Notes from Dr. Marroquin is appreciated. TAY
[2017-06-23] MEDS: Pantoprazole 40 mg EC Tab PO SCH (09:08)
--- NOTE | 2017-06-23 12:48 | PN ---
DATE: 06/23/2017 SUBJECTIVE: The patient is seen lying in bed on telemetry. The Rojas catheter was removed. He apparently is urinating freely. He did have some vague chest discomfort yesterday and was given morphine by resident. He feels comfortable at the present time. CURRENT MEDICATIONS: Include aspirin, Plavix, Flomax, Lipitor 40 mg daily, metoprolol 25 mg b.i.d., Protonix, Zestril 20 mg daily. OBJECTIVE: GENERAL: He is an elderly man who appears comfortable at rest. VITAL SIGNS: Blood pressure is 150/70 with pulse of 72 and sinus, respirations are 14. He is afebrile. HEENT: No JVD. CHEST: Clear to auscultation and percussion. HEART: PMI in normal position. No pathological murmur or gallops noted. ABDOMEN: Soft, nontender, normoactive bowel sounds. EXTREMITIES: No edema. Both groin access sites have mild hematoma. DIAGNOSTIC DATA: White count is 4.0, hemoglobin and hematocrit are 9.4 and 27.9 with platelet count of 149,000. IMPRESSION: 1. Recent acute coronary syndrome, status post multivessel percutaneous coronary intervention of right coronary artery and left anterior descending, clinically stable. 2. History of hypertension. RECOMMENDATIONS: From cardiac standpoint, he appears stable for discharged home at this time. Outpatient followup will be arranged. The need for uninterrupted aspirin and Plavix therapy for 1 year was discussed with him as well. Close outpatient followup will be arranged. Randy Marroquin MD
[2017-06-23 21:26] LABS: URINE BILIRUBIN NEGATIVE (NEGATIVE); URINE BLOOD MODERATE (NEGATIVE); URINE GLUCOSE (UA) NEGATIVE (NEGATIVE); URINE KETONE NEGATIVE (NEGATIVE); URINE LEUKOCYTE ESTERASE TRACE Leu/uL (NEGATIVE); URINE PROTEIN TRACE mg/dL (<30 mg/dL); URINE UROBILINOGEN 0.2 E.U./dL (<1 E.U./dL)
[2017-06-23 22:44] LABS: URINE APPEARANCE SL CLOUDY (CLEAR); URINE COLOR YELLOW (YELLOW)
[2017-06-23 23:07] LABS: URINE RBC 20 - 25 /hpf (0-2)
[2017-06-23 23:08] LABS: URINE BACTERIA MANY (NEG)
[2017-06-24 06:23] VITALS: O2SAT 100
[2017-06-24] MEDS: Pantoprazole 40 mg EC Tab PO SCH (09:25)
[2017-06-24 12:06] VITALS: BP 141/72; RESP 18; TEMP 98
[2017-06-24] MEDS ORDERED: Bisacodyl 5mg EC Tab PO STA (13:17)
[2017-06-24 14:47] VITALS: PULSE 67
--- NOTE | 2017-06-25 11:04 | PQF GENQUE ---
06/25/17 Dr. Alia Nazario, Please see urine culture result of 06/23. Any additional diagnosis? Thank you. Clarification of your documentation is requested to better reflect the severity of illness and intensity of treatment of your patient. Indicators present [] Specify: [x] UTI noted on urinalysis after catheterization for gross hematuria secondary to I.V. heparin. [] Specify: [] [] Specify: [] [] Specify: [] Location in the medical record that reflects the above clinical findings: [] Treatment Provided: [x] Treated with I.V. fluids, no antibiotics PHYSICIAN'S RESPONSE Based on your medical judgment of the clinical indicators outlined above please clarify the following: [x] Practitioner response Culture results available after patient was discharged. [] If unable to determine, please check the box, sign and date. Present On Admission (POA) Indicator: [] Present at the time of admission [X] Not present at the time of admission [] Clinically Undetermined In responding to this query, please exercise your independent professional judgment. The fact that a question is asked does not imply that any particular answer is desired or expected. Thank you for your clarification on this documentation. If you have any questions please call:[ ] * Thank you, [ ] weasand trimmer TAY
--- NOTE | 2017-06-28 08:45 | PN ---
DATE: 06/24/2017 SUBJECTIVE: This morning, Abi is in room 273, bed 1. He was held over from Wednesday because of difficulty with voiding and an episode of chest pain. Two EKGs were unremarkable. He cleared by Cardiology. He has been able to void without difficulty and is ready for discharge today. Medications were reviewed. Aspirin and Plavix were prescribed. New prescription for Plavix was sent to his drug store and he is discharged to home. We will follow up in the office in one week. Bin Nazario MD
== END 2017-06-24 17:11 | disposition home or self-care (01) | DRG 247 ==
LOC: ED 12:37 → ERH 13:36 → CCU 16:01 → 3RSO 06-19 15:18 → 2RSO 06-21 13:54
PROVIDERS: ADMIT Internal Medicine; ATTEND Internal Medicine
PROC: 027034Z Dilation of Coronary Artery, One Artery with Drug-eluting Intraluminal Device, Percutaneous Approach (ICD-10-PCS; principal; 2017-06-18)
PROC: B2111ZZ Fluoroscopy of Multiple Coronary Arteries using Low Osmolar Contrast (ICD-10-PCS; 2017-06-18)
PROC: B2151ZZ Fluoroscopy of Left Heart using Low Osmolar Contrast (ICD-10-PCS; 2017-06-18)
PROC: B41F1ZZ Fluoroscopy of Right Lower Extremity Arteries using Low Osmolar Contrast (ICD-10-PCS; 2017-06-18)
PROC: 027034Z Dilation of Coronary Artery, One Artery with Drug-eluting Intraluminal Device, Percutaneous Approach (ICD-10-PCS; 2017-06-21)
DX: I25.110 Atherosclerotic heart disease of native coronary artery with unstable angina pectoris (principal); I24.9 Acute ischemic heart disease, unspecified; D64.9 Anemia, unspecified; I48.0 Paroxysmal atrial fibrillation; R31.0 Gross hematuria; E03.9 Hypothyroidism, unspecified; E78.5 Hyperlipidemia, unspecified; G43.909 Migraine, unspecified, not intractable, without status migrainosus; T83.518A Infection and inflammatory reaction due to other urinary catheter, initial encounter; N39.0 Urinary tract infection, site not specified; F17.200 Nicotine dependence, unspecified, uncomplicated; H26.9 Unspecified cataract; H91.90 Unspecified hearing loss, unspecified ear; I10 Essential (primary) hypertension; I25.2 Old myocardial infarction; K21.9 Gastro-esophageal reflux disease without esophagitis; N32.3 Diverticulum of bladder; N40.1 Benign prostatic hyperplasia with lower urinary tract symptoms; R33.9 Retention of urine, unspecified; Z79.01 Long term (current) use of anticoagulants; Z79.02 Long term (current) use of antithrombotics/antiplatelets; Z79.82 Long term (current) use of aspirin; Z79.899 Other long term (current) drug therapy; R40.2412 Glasgow coma scale score 13-15, at arrival to emergency department; I45.10 Unspecified right bundle-branch block; F32.89 Other specified depressive episodes; T45.515A Adverse effect of anticoagulants, initial encounter

== ENCOUNTER 2017-06-24 22:46 | Inpatient (IN) | payer MEDICARE ==
[2017-06-24 22:47] VITALS: PULSE 72
--- NOTE | 2017-06-24 23:29 | ED PDOC ---
Arrival/HPI - General Chief Complaint: Chest Pain Time Seen by Provider: 06/24/17 23:12 Historian: Family - History of Present Illness Narrative History of Present Illness (Text): 06/24/17 23:30 Abi Ambrose is an 86 year old male accompanied by family, whose past medical history includes atrial fibrillation, hypertension, and hyperlipidemia, who presents of chest pain for a few days. Patient's daughter at bedside states that patient was recently in the hospital for a week and was discharged at 17: 00 this afternoon. However, upon returning home, patient would not reportedly stay in bed and was on his feet for an hour before syncopizing the first time. Patient's daughter states that patient collapsed twice more, experiencing LOC and hitting his head in both instances. Patient denies any fever, chills, shortness of breath, nausea, vomiting, diarrhea, urinary symptoms, back pain, neck pain, headache, dizziness, or any other complaints. PMD: Dr. Nazario Consulting Solution Director: Dr. Cornejo Time/Duration: < week Symptom Onset: Gradual Symptom Course: Unchanged Severity Level: Mild Context: Home Past Medical History - Provider Review Nursing Documentation Reviewed: Yes - Infectious Disease Hx of Infectious Diseases: None - Cardiac Hx Cardiac Disorders: Yes Hx Hypertension: Yes Other/Comment: POSITIVE STRESS TEST, APICAL ISCHEMIA - Pulmonary Hx Respiratory Disorders: No - Neurological Hx Neurological Disorder: No - HEENT Hx HEENT Disorder: Yes Hx Cataracts: Yes Hx Deafness: Yes - Renal Hx Renal Disorder: No - Endocrine/Metabolic Hx Endocrine Disorders: No - Hematological/Oncological Hx Blood Disorders: No - Integumentary Hx Dermatological Disorder: No - Musculoskeletal/Rheumatological Hx Musculoskeletal Disorders: No Hx Falls: No - Gastrointestinal Hx Gastrointestinal Disorders: Yes Hx Gastroesophageal Reflux: Yes - Genitourinary/Gynecological Hx Genitourinary Disorders: Yes Hx Prostate Problems: Yes - Psychiatric Hx Psychophysiologic Disorder: No Hx Depression: No Hx Emotional Abuse: No Hx Physical Abuse: No Hx Substance Use: No - Surgical History Hx Cataract Extraction: Yes Other/Comment: metal plate rt forearm 1959's - Anesthesia Hx Anesthesia: Yes - Suicidal Assessment Feels Threatened In Home Enviroment: No Family/Social History - Physician Review Nursing Documentation Reviewed: Yes Family/Social History: No Known Family HX Smoking Status: Never Smoked Hx Alcohol Use: No Hx Substance Use: No Hx Substance Use Treatment: No Allergies/Home Meds Allergies/Adverse Reactions: Allergies No Known Allergies Allergy (Verified 06/17/17 12:42) Home Medications: Home Meds Medication Instructions Recorded Confirmed Simvastatin 20 mg PO DAILY 05/02/12 06/24/17 Tamsulosin [Flomax] 0.4 mg PO DAILY 09/10/16 06/24/17 Digoxin (RENAL USE) 0.125 mg PO DAILY 09/19/16 06/24/17 Lisinopril 20 mg PO DAILY 09/19/16 06/24/17 Metoprolol 100 mg PO BID 09/19/16 06/24/17 Review of Systems - Physician Review All systems were reviewed & negative as marked: Yes - Review of Systems Constitutional: absent: Fevers, Night Sweats Eyes: absent: Vision Changes ENT: absent: Hearing Changes Respiratory: absent: SOB Cardiovascular: Chest Pain, Syncope Gastrointestinal: absent: Abdominal Pain Genitourinary Male: absent: Dysuria, Frequency Musculoskeletal: absent: Arthralgias Skin: absent: Rash, Pruritis Neurological: absent: Headache, Dizziness Endocrine: absent: Diaphoresis Hemo/Lymphatic: absent: Adenopathy Psychiatric: absent: Anxiety, Depression Physical Exam Vital Signs Reviewed: Yes Vital Signs Temp Pulse Pulse Resp BP Pulse Ox 06/25/17 00:59 55 L 19 128/50 L 100 06/25/17 00:40 54 L 18 107/53 L 100 06/25/17 00:25 55 L 19 114/47 L 99 06/25/17 00:16 58 L 17 121/54 L 98 06/24/17 23:39 53 L 18 104/50 L 96 06/24/17 23:10 53 L 06/24/17 22:59 97.7 F 52 L 18 84/48 L 98 Temperature: Afebrile Blood Pressure: Hypotensive Pulse: Bradycardic Respiratory Rate: Normal Mental Status: Positive for: Alert and Oriented X 3, other (hard of hearing) - Systems Exam Head: Present: Atraumatic, Normocephalic Pupils: Present: PERRL Extroacular Muscles: Present: EOMI Conjunctiva: Present: Other (conjunctival pallor) Ears: Present: Normal Mouth: Present: Moist Mucous Membranes Pharnyx: Present: Normal Neck: Present: Normal Range of Motion. No: Paraspinal Tenderness, JVD, Lymphadenopathy Respiratory/Chest: Present: Clear to Auscultation, Good Air Exchange. No: Respiratory Distress, Accessory Muscle Use Cardiovascular: Present: Normal S1, S2, Bradycardic. No: Murmurs Abdomen: Present: Normal Bowel Sounds. No: Tenderness, Distention, Peritoneal Signs Upper Extremity: Present: Normal Inspection, Normal ROM, NORMAL PULSES, Other ( peripheral pulse 2+). No: Cyanosis, Edema Lower Extremity: Present: Normal Inspection, NORMAL PULSES, Normal ROM, Other ( peripheral pulse 2+). No: Edema, CALF TENDERNESS Neurological: Present: Other (Non-focal; Cranial nerves 2-12 intact; ) Skin: Present: Warm, Dry, Pale. No: Rashes Medical Decision Making ED Course and Treatment: 06/24/17 23:49 Impression: 86 year old male complaining of chest pain for a few days and multiple syncopal episodes today. Patient was discharged this at 17:00 afternoon. Differential Diagnosis included but are not limited to: Side effects of Beta Blockade. Due to use of beta blockers and pulse in 50s. Plan: -- EKG -- Chest X-ray -- Labs -- Urinalysis -- Reassess and disposition Prior Visits: Notes and results from previous visits were reviewed. Patient was last seen in the emergency department on 06/17/17 for chest pain. Patient was admitted to the ICU for further evaluation. Progress Notes: 06/25/17 01:08 Lab results reviewed, Patient has anemia which is not new. Downward trending troponins, consistent with discharge lab work. Patient's syncopal episode most likely is due to his beta blockers. Will admit to observation to a monitor bed. 06/25/17 01:59 CT Head Without Intravenous Contrast Creator : WENDY MANNING FINDINGS: Brain: No acute intracranial hemorrhage. Age-appropriate periventricular white matter disease. No edema. Ventricles: Age-appropriate ventriculomegaly. Bones: No acute displaced fracture. Sinuses: Unremarkable as visualized. No acute sinusitis. Mastoid air cells: Unremarkable as visualized. No mastoid effusion. IMPRESSION: No acute intracranial hemorrhage, or suspicious mass effect. Reassessment Condition: Unchanged - Lab Interpretations Lab Results: 06/24/17 23:15 06/24/17 23:15 Lab Results 06/24/17 23:15: Sodium 140, Potassium 3.8, Chloride 103, Carbon Dioxide 26, Anion Gap 15, BUN 29 H, Creatinine 1.6 H, Est GFR ( Amer) 50, Est GFR ( Non-Af Amer) 41, Random Glucose 132 H, Calcium 9.4, Magnesium 2.0, Total Bilirubin 0.7, AST 37, ALT 20, Alkaline Phosphatase 77, Lactate Dehydrogenase 477, Total Creatine Kinase 47, Troponin I 0.14 H* D, NT-Pro-B Natriuret Pep 429 , Total Protein 7.0, Albumin 3.8, Globulin 3.2, Albumin/Globulin Ratio 1.2 06/24/17 23:15: PT 13.6 H, INR 1.24 H 06/24/17 23:15: WBC 7.4 D, RBC 3.43 L, Hgb 10.0 L, Hct 30.3 L, MCV 88.3, MCH 29.2, MCHC 33.0, RDW 14.0, Plt Count 250, MPV 10.2, Gran % 73.0 H, Lymph % (Auto ) 17.0 L, [place] % (Auto) 8.5 H, Eos % (Auto) 1.4 L, Baso % (Auto) 0.1, Gran # 5.38, Lymph # 1.3, [place] # 0.6, Eos # 0.1, Baso # 0.01 I have reviewed the lab results: Yes - RAD Interpretation Radiology Orders: 06/24/17 23:23 CHEST PORTABLE [RAD] Stat 06/24/17 23:55 HEAD W/O CONTRAST [CT] Stat - Scribe Statement The provider has reviewed the documentation as recorded by the Aissatou Griffith Provider Scribe Attestation: All medical record entries made by the Rupertoibelba were at my direction and personally dictated by me. I have reviewed the chart and agree that the record accurately reflects my personal performance of the history, physical exam, medical decision making, and the department course for this patient. I have also personally directed, reviewed, and agree with the discharge instructions and disposition. Disposition/Present on Arrival - Present on Arrival Any Indicators Present on Arrival: No History of DVT/PE: No History of Uncontrolled Diabetes: No Urinary Catheter: Yes (inserted in ed) History of Decub. Ulcer: No History Surgical Site Infection Following: None - Disposition Have Diagnosis and Disposition been Completed?: Yes Diagnosis: Syncope and collapse Disposition: HOSPITALIZED Disposition Time: 00:54 Patient Plan: Observation Patient Problems: Current Active Problems Problem Status Onset Syncope and collapse Acute Condition: FAIR
[2017-06-24 23:36] LABS: BASO # 0.01 K/mm3 (0.0-2.0); BASO % 0.1 % (0.0-3.0); EOS # 0.1 (0.0-0.7); EOS % 1.4 % (1.5-5.0); GRAN # 5.38 (1.4-6.5); HEMATOCRIT 30.3 % (42.0-52.0); LYMPH # 1.3 (1.2-3.4); MEAN CELL VOLUME 88.3 fl (80.0-105.0); MEAN CORPUSCULAR HEMOGLOBIN 29.2 pg (25.0-35.0); MEAN PLATELET VOLUME 10.2 fl (7.0-11.0); MONO # 0.6 (0.1-0.6); MONO % 8.5 % (1.0-6.0); WHITE BLOOD COUNT 7.4 10^3/ul (4.5-11.0)
[2017-06-24 23:42] LABS: INR 1.24 (0.93-1.08)
[2017-06-25 00:26] LABS: ALB/GLOB RATIO 1.2 (1.1-1.8); BILIRUBIN,TOTAL 0.7 mg/dL (0.2-1.3); CALCIUM 9.4 mg/dL (8.4-10.5); POTASSIUM 3.8 mmol/L (3.6-5.0); TROPONIN I 0.14 ng/mL
--- NOTE | 2017-06-25 01:13 | CT ---
EXAM: CT Head Without Intravenous Contrast CLINICAL HISTORY: 86 years old, male; Signs and symptoms; Syncope and collapse TECHNIQUE: Axial computed tomography images of the head/brain without intravenous contrast. All CT scans at this facility use one or more dose reduction techniques, viz.: automated exposure control; ma/kV adjustment per patient size (including targeted exams where dose is matched to indication; i.e. head); or iterative reconstruction technique. COMPARISON: CT - HEAD W/O (CODE STROKE) 2016-08-20 16:19 FINDINGS: Brain: No acute intracranial hemorrhage. Age-appropriate periventricular white matter disease. No edema. Ventricles: Age-appropriate ventriculomegaly. Bones: No acute displaced fracture. Sinuses: Unremarkable as visualized. No acute sinusitis. Mastoid air cells: Unremarkable as visualized. No mastoid effusion. IMPRESSION: No acute intracranial hemorrhage, or suspicious mass effect.
[2017-06-25 03:35] VITALS: BMI 21.4
[2017-06-25 06:17] LABS: URINE BILIRUBIN NEGATIVE (NEGATIVE); URINE BLOOD SMALL (NEGATIVE); URINE GLUCOSE (UA) NEGATIVE (NEGATIVE); URINE KETONE NEGATIVE (NEGATIVE); URINE LEUKOCYTE ESTERASE MODERATE Leu/uL (NEGATIVE); URINE PROTEIN TRACE mg/dL (<30 mg/dL); URINE UROBILINOGEN 0.2 E.U./dL (<1 E.U./dL)
[2017-06-25 06:19] LABS: URINE APPEARANCE SL CLOUDY (CLEAR); URINE COLOR YELLOW (YELLOW)
[2017-06-25 06:37] LABS: URINE EPITHELIAL CELLS 0 - 2 /hpf (0-5); URINE WBC 15 - 20 /hpf (0-6)
[2017-06-25 06:38] LABS: URINE BACTERIA MOD (NEG)
--- NOTE | 2017-06-25 09:02 | RAD ---
HISTORY: chest pain COMPARISON: 06/17/2017 FINDINGS: LUNGS: No active pulmonary disease. PLEURA: No significant pleural effusion identified, no pneumothorax apparent. CARDIOVASCULAR: Normal. OSSEOUS STRUCTURES: No significant abnormalities. VISUALIZED UPPER ABDOMEN: Normal. OTHER FINDINGS: None. IMPRESSION: No active disease.
[2017-06-25] MEDS: Sodium Chloride 0.9% 1,000 ML IV SCH ×2 (12:43→23:00)
--- NOTE | 2017-06-25 17:36 | CARD ---
APPROVED REPORT EKG Measurement Heart [id number] <Conclusion> Sinus bradycardia with premature supraventricular complexes RBBB Nonspecific ST abnormality Abnormal ECG
[2017-06-25 20:38] VITALS: RESP 20
[2017-06-26 05:59] LABS: HEMATOCRIT 25.8 % (42.0-52.0); MEAN CELL VOLUME 88.4 fl (80.0-105.0); MEAN CORPUSCULAR HEMOGLOBIN 29.1 pg (25.0-35.0); MEAN CORPUSCULAR HGB CONC 32.9 g/dl (31.0-37.0); MEAN PLATELET VOLUME 9.5 fl (7.0-11.0); RED CELL DISTRIBUTION WIDTH 13.9 % (11.5-14.5); WHITE BLOOD COUNT 4.2 10^3/ul (4.5-11.0)
[2017-06-26 06:16] LABS: ALB/GLOB RATIO 1.1 (1.1-1.8); ALKALINE PHOSPHATASE 59 U/L (38-126); ALT/SGPT 25 U/L (7-56); AST/SGOT 28 U/L (17-59); BILIRUBIN,TOTAL 0.6 mg/dL (0.2-1.3); BLOOD UREA NITROGEN 20 mg/dL (7-21); CALCIUM 8.7 mg/dL (8.4-10.5); CARBON DIOXIDE 28 mmol/L (21-33); CHLORIDE 110 mmol/L (98-107); GFR AFRICAN-AMERICAN > 60; GLUCOSE,RANDOM 86 mg/dL (70-110); POTASSIUM 3.9 mmol/L (3.6-5.0); SODIUM 142 mmol/L (132-148); TOTAL PROTEIN 5.7 g/dL (5.8-8.3)
[2017-06-26 08:50] VITALS: BP 151/74; TEMP 98.2; O2SAT 97
[2017-06-26] MEDS: Sodium Chloride 0.9% 1,000 ML IV SCH (09:01)
[2017-06-26 15:58] VITALS: PULSE 68
--- NOTE | 2017-06-26 17:00 | CON ---
DATE: 06/26/2017 REQUESTING PHYSICIAN: Dr. Nazario. REASON FOR CONSULTATION: Syncope. HISTORY OF PRESENT ILLNESS: This is an 86-year-old man, well known to us with a history of coronary artery disease, status post recent multivessel PCI, admitted after the syncopal event at home. He was just discharged recently after PCI of his LAD and RCA. He returned the same evening and apparently had a syncopal event. He attempted to get up and according to the chart, his daughter states that he collapsed twice more and struck his head. He was brought to the emergency room for evaluation. He had no evidence of acute EKG changes on his electrocardiogram. He does have a history of paroxysmal atrial fibrillation and he does have recent hematuria. PAST MEDICAL HISTORY: Notable for recent [id number] elevation myocardial infarction earlier this year. He has a history of hypertension, BPH, and hypothyroidism. MEDICATIONS AT HOME: Included aspirin, Plavix, simvastatin 20 mg daily, metoprolol 100 mg b.i.d., lisinopril 20 mg daily, Flomax, and digoxin 0.125 mg daily. ALLERGIES: HE HAS NO REPORTED ALLERGIES. SOCIAL HISTORY: He does not smoke or drink. FAMILY HISTORY: Unremarkable for premature heart disease. REVIEW OF SYSTEMS: The 10-point review of systems is otherwise unremarkable. PHYSICAL EXAMINATION: GENERAL: He is an elderly man who appears comfortable at rest. VITAL SIGNS: His blood pressure is 150/70 with a pulse of 70 and sinus and respirations are 14. He is afebrile. HEENT: No JVD. CHEST: Diffuse scattered rhonchi heard. HEART: PMI in normal position. Systolic murmur at the lower sternal border and apex. ABDOMEN: Soft and nontender. Normoactive bowel sounds. EXTREMITIES: No edema. SKIN: Warm and dry. PSYCHIATRIC: Normal mood and affect. NEUROLOGIC: No gross motor or sensory deficits appreciable. DIAGNOSTIC DATA: Initial hemoglobin and hematocrit were 10.0 and 30.3, followup is 8.5 and 25.8 with MCV of 88, white count is 4.2, platelet count of 182,000. Potassium is 3.9, BUN and creatinine initially 29 and 1.6, repeat is 20 and 1.0. Troponin is 0.14 with a CK of 47. PT/INR 13.6 and 1.24. EKG reveals sinus tachycardia with supraventricular premature beats, right bundle-branch block, and nonspecific ST-T abnormalities. Chest x-ray reveals normal cardiac silhouette and clear lung hernandez. IMPRESSION: 1. Syncope, etiology uncertain, appears to have evidence of orthostasis on presentation. May have had some component of volume depletion. 2. Fall in hemoglobin from 10.0 to 8.5 on admission, possibly dilutional, but given the use of dual-antiplatelet therapy, a screening for stool guaiac is advised. His current symptoms do not appear to be ischemic in nature. 3. Known coronary artery disease, status post recent multivessel percutaneous coronary intervention. 4. Efe-ZN-vncawyw elevation myocardial infarction. 5. Paroxysmal atrial fibrillation, not currently on full anticoagulation given recent hematuria. RECOMMENDATIONS: Telemetry monitoring should continue. Followup CBC and stool guaiac should be checked. Repeat orthostatic blood pressure monitoring is advised. Further recommendations will be made based upon his clinical course and the results of the above evaluation. Thank you for this consultation. Randy Marroquin MD
--- NOTE | 2017-06-27 05:24 | DS ---
CHIEF COMPLAINT: HISTORY OF PRESENT ILLNESS: This is an 86-year-old man who was recently hospitalized at [facility] for chest pain, positive troponins, two stents were placed at the time of two cardiac catheterizations. One, on Wednesday after Thanks, the one the following Wednesday. He went home on Wednesday. Seems to be doing fine. He was with his daughter, had a nice dinner, went to the bathroom to shave. The patient stated he was standing for unusually long time shaving because the razor was dull. He says he was standing near the sink for more than a half hour when he suddenly has syncopal episode and fell to the floor. He tried getting up and collapsed again. Ambulance was called. He was taken to the emergency room. He was found to be hypotensive in the ER, but not profoundly bradycardiac. IV fluids were given his pressure came up, he is awake and alert. I spoke with the patient's daughter who is a registered nurse. I explained the status. He was admitted to the medical floor, seen by Cardiology. IV fluids continued. Orthostatic blood pressures were checked and it was found that he was clinically dry. He did have some hematuria, which was a problem during last day was continued. So, Dr. Martin was called for consultation. The patient did well. Blood pressure look stable. He agreed to go to transitional care unit for additional physical therapy, monitoring of his fluid status, blood pressure and hemodynamics. He will followed by Cardiology and Urology on TCU. FINAL DISCHARGE DIAGNOSES: 1. Syncope. 2. Hypotension. 3. Orthostatic hypotension. 4. Long history of hypertension. 5. Coronary artery disease. PLAN: We will follow the patient on transitional care unit. Bin Nazario MD
== END 2017-06-26 15:52 | DRG 312 ==
LOC: ED 22:46 → ERH 06-25 00:55 → 3RNO 06-25 01:49 → OBSVTOIN 06-25 14:50
PROVIDERS: ADMIT Internal Medicine; ATTEND Internal Medicine
DX: I95.1 Orthostatic hypotension (principal); R31.9 Hematuria, unspecified; I48.0 Paroxysmal atrial fibrillation; E78.5 Hyperlipidemia, unspecified; I10 Essential (primary) hypertension; K21.9 Gastro-esophageal reflux disease without esophagitis; I25.10 Atherosclerotic heart disease of native coronary artery without angina pectoris; N40.0 Benign prostatic hyperplasia without lower urinary tract symptoms; E03.9 Hypothyroidism, unspecified; H91.90 Unspecified hearing loss, unspecified ear; Z91.81 History of falling; I25.2 Old myocardial infarction; Z79.02 Long term (current) use of antithrombotics/antiplatelets

== ENCOUNTER 2017-06-26 16:05 | Inpatient (IN) | payer OTHER, MEDICARE ==
[2017-06-26 17:12] VITALS: BMI 21.9
[2017-06-26] MEDS ORDERED: Pneumococcal 23-Valent Vaccine IM ONE (17:12)
[2017-06-26] MEDS ORDERED: Influenza Vaccine 60 mcg/0.5 mL SYR (4YR UP) IM ONE (17:12)
[2017-06-27 07:20] LABS: EOS # 0.1 (0.0-0.7); EOS % 2.8 % (1.5-5.0); GRAN # 2.76 (1.4-6.5); GRAN % 65.3 % (50.0-68.0); HEMATOCRIT 29.9 % (42.0-52.0); LYMPH # 0.9 (1.2-3.4); MEAN CELL VOLUME 88.7 fl (80.0-105.0); MEAN CORPUSCULAR HEMOGLOBIN 29.1 pg (25.0-35.0); MEAN CORPUSCULAR HGB CONC 32.8 g/dl (31.0-37.0); MEAN PLATELET VOLUME 9.6 fl (7.0-11.0); MONO # 0.5 (0.1-0.6); MONO % 10.9 % (1.0-6.0); WHITE BLOOD COUNT 4.2 10^3/ul (4.5-11.0)
[2017-06-27 07:28] LABS: ALB/GLOB RATIO 1.2 (1.1-1.8); ALKALINE PHOSPHATASE 68 U/L (38-126); ALT/SGPT 29 U/L (7-56); AST/SGOT 23 U/L (17-59); BILIRUBIN,TOTAL 0.7 mg/dL (0.2-1.3); BLOOD UREA NITROGEN 19 mg/dL (7-21); CALCIUM 9.4 mg/dL (8.4-10.5); CARBON DIOXIDE 27 mmol/L (21-33); CHLORIDE 108 mmol/L (98-107); GFR AFRICAN-AMERICAN > 60; GLUCOSE,RANDOM 84 mg/dL (70-110); POTASSIUM 4.1 mmol/L (3.6-5.0); SODIUM 142 mmol/L (132-148); TOTAL PROTEIN 6.2 g/dL (5.8-8.3)
[2017-06-27 15:58] LABS: PH,URINE 6.5 (4.7-8.0); URINE BILIRUBIN NEGATIVE (NEGATIVE); URINE BLOOD LARGE (NEGATIVE); URINE GLUCOSE (UA) NEGATIVE (NEGATIVE); URINE KETONE NEGATIVE (NEGATIVE); URINE LEUKOCYTE ESTERASE SMALL Leu/uL (NEGATIVE); URINE PROTEIN NEGATIVE mg/dL (<30 mg/dL); URINE UROBILINOGEN 0.2 E.U./dL (<1 E.U./dL)
[2017-06-27 16:05] LABS: URINE APPEARANCE CLEAR (CLEAR); URINE COLOR LIGHT YELLOW (YELLOW)
[2017-06-27 16:18] LABS: URINE RBC TNTC /hpf (0-2)
[2017-06-27 16:19] LABS: URINE BACTERIA SMALL (NEG)
--- NOTE | 2017-06-27 23:35 | PN ---
DATE: 06/27/2017 SUBJECTIVE: The patient was seen this Wednesday morning in room 314, bed 1, on the Transitional Care Unit at [facility]. He is sitting in bed, comfortable, awake, and alert. He feels he did well with physical therapy, enjoyed his activity. He is looking forward tomorrow. PHYSICAL EXAMINATION: HEAD AND NECK: Unremarkable. LUNGS: Show good aeration in right and left. HEART: Regular. EXTREMITIES: Showed no edema. IMPRESSION AND PLAN: Status post hospitalization for cardiac stenting x2 followed by syncopal episode, hours after returning home with low pressure perhaps related to hypovolemia. The patient now seems to be doing better. I noticed that there are times when he still is orthostatic. We will as the nurses to check orthostatic blood pressures here in TCU and adjust his medications accordingly. Bin Nazario MD
--- NOTE | 2017-06-28 08:12 | CP.PCM.PN ---
Subjective - Date & Time of Evaluation Date of Evaluation: 06/28/17 Time of Evaluation: 07:00 - Subjective Subjective: Stable on TCU. No CP or SOB. No syncope. V/S noted. PE: Lungs: clear Cor.: S1S2 Abd.: soft Ext.: no edema Neuro.: alert Labs 05/28 noted. Objective - Vital Signs/Intake and Output Vital Signs (last 24 hours): Temp Pulse Resp BP Pulse Ox 98.7 F 68 18 160/67 H 96 06/27/17 16:00 06/27/17 18:23 06/27/17 16:00 06/27/17 18:23 06/27/17 16:00 - Medications Medications: Current Medications Acetaminophen (Tylenol 325mg Tab) 650 mg PO Q4H PRN; Protocol PRN Reason: Pain, moderate (4-7) Last Admin: 06/27/17 15:38 Dose: 650 mg Amlodipine Besylate (Norvasc) 5 mg PO DAILY SUE PRN Reason: Protocol Aspirin (Aspirin Chewable) 81 mg PO 0800 SUE PRN Reason: Protocol Last Admin: 06/27/17 08:20 Dose: 81 mg Atorvastatin Calcium (Lipitor) 10 mg PO DIN USE PRN Reason: Protocol Last Admin: 06/27/17 17:23 Dose: 10 mg Ciprofloxacin (Cipro) 250 mg PO Q12 SUE PRN Reason: Protocol Stop: 06/29/17 18:27 Last Admin: 06/27/17 21:08 Dose: 250 mg Clopidogrel Bisulfate (Plavix) 75 mg PO DAILY SUE PRN Reason: Protocol Last Admin: 06/27/17 09:37 Dose: 75 mg Lisinopril (Zestril) 10 mg PO DAILY SUE PRN Reason: Protocol Last Admin: 06/27/17 09:37 Dose: 10 mg Metoprolol Tartrate (Lopressor) 50 mg PO 0800,1800 SUE PRN Reason: Protocol Last Admin: 06/27/17 17:23 Dose: 50 mg Tamsulosin HCl (Flomax) 0.4 mg PO DAILY SUE PRN Reason: Protocol Last Admin: 06/27/17 09:36 Dose: 0.4 mg - Labs Labs: 06/27/17 06:00 06/27/17 06:00 Assessment and Plan - Assessment and Plan (Free Text) Assessment: Syncope/Orthostatic hypotension CAD/LAD TONY x2 06/18/17 PCI RCA 06/21/17 NSTEMI PAF HBP Hypothyroidism GERD BPH/Urinary Retention Dimeinished hearing Cataracts Plan: Check postural V/S OOB/Rehab Efforts Continue cardiac meds
--- NOTE | 2017-06-29 08:03 | CP.PCM.PN ---
Subjective - Date & Time of Evaluation Date of Evaluation: 06/29/17 Time of Evaluation: 07:00 - Subjective Subjective: Stable on TCU. No CP or SOB. No syncope. V/S noted. PE: Lungs: clear Cor.: S1S2 Abd.: soft Ext.: no edema Neuro.: alert I/O = 240/550 recorded Labs 05/28 noted. Objective - Vital Signs/Intake and Output Vital Signs (last 24 hours): Temp Pulse Resp BP Pulse Ox 97.8 F 69 18 135/71 97 06/28/17 16:53 06/28/17 18:03 06/28/17 16:53 06/28/17 18:03 06/28/17 16:53 Intake and Output: 06/29/17 06/29/17 06:59 18:59 Intake Total 240 Output Total 550 Balance -310 - Medications Medications: Current Medications Acetaminophen (Tylenol 325mg Tab) 650 mg PO Q4H PRN; Protocol PRN Reason: Pain, moderate (4-7) Last Admin: 06/29/17 00:54 Dose: 650 mg Amlodipine Besylate (Norvasc) 5 mg PO DAILY SUE PRN Reason: Protocol Last Admin: 06/28/17 11:03 Dose: 5 mg Aspirin (Aspirin Chewable) 81 mg PO 0800 SUE PRN Reason: Protocol Last Admin: 06/28/17 08:20 Dose: 81 mg Atorvastatin Calcium (Lipitor) 10 mg PO DIN SUE PRN Reason: Protocol Last Admin: 06/28/17 18:03 Dose: 10 mg Ciprofloxacin (Cipro) 250 mg PO Q12 SUE PRN Reason: Protocol Stop: 06/29/17 18:27 Last Admin: 06/28/17 21:16 Dose: 250 mg Clopidogrel Bisulfate (Plavix) 75 mg PO DAILY SUE PRN Reason: Protocol Last Admin: 06/28/17 11:03 Dose: 75 mg Lisinopril (Zestril) 10 mg PO DAILY SUE PRN Reason: Protocol Last Admin: 06/28/17 11:04 Dose: 10 mg Metoprolol Tartrate (Lopressor) 50 mg PO 0800,1800 SUE PRN Reason: Protocol Last Admin: 06/28/17 18:03 Dose: 50 mg Tamsulosin HCl (Flomax) 0.4 mg PO DAILY SUE PRN Reason: Protocol Last Admin: 06/28/17 11:02 Dose: 0.4 mg - Labs Labs: 06/27/17 06:00 06/27/17 06:00 Assessment and Plan - Assessment and Plan (Free Text) Assessment: Syncope/Orthostatic hypotension CAD/LAD TONY x2 06/18/17 PCI RCA 06/21/17 NSTEMI PAF HBP Hypothyroidism GERD BPH/Urinary Retention Dimeinished hearing Cataracts Plan: Check postural V/S OOB/Rehab Efforts Continue cardiac meds
--- NOTE | 2017-06-30 12:15 | PN ---
DATE: 06/30/2017 SUBJECTIVE: The patient was seen lying in bed in the TCU. He continues to feel somewhat weak. He denies any chest pain or dyspnea. CURRENT MEDICATIONS: Include aspirin, Flomax, Lipitor, metoprolol 50 mg b.i.d., Norvasc, Plavix, and Zestril 10 mg daily. OBJECTIVE: GENERAL: He is an elderly man, who appears comfortable at rest. VITAL SIGNS: His blood pressure is 124/60, pulse of 80, respirations are 14. He is afebrile. HEENT: No JVD. CHEST: Few scattered rhonchi noted. HEART: No pathological murmur or gallops noted. ABDOMEN: Soft, nontender, normoactive bowel sounds. EXTREMITIES: A moderate hematoma is present in the right groin. A bruit is present and the pulsatile mass is noted. This appears larger than previously noted. DIAGNOSTIC DATA: No blood work is pending from this morning. IMPRESSION: 1. Recent syncope with orthostasis, clinically improving. 2. Coronary artery disease, status post a multivessel percutaneous coronary intervention. 3. Recent non-ST segment elevation myocardial infarction. 4. Paroxysmal atrial fibrillation. 5. Possible right femoral artery pseudoaneurysm. RECOMMENDATIONS: Femoral artery ultrasound will be obtained this morning and reviewed. If pseudoaneurysm is present, a thrombin injection may be necessary. The rest of his cardiac medications should continue unchanged. We will continue to follow as needed. Randy Marroquin MD
--- NOTE | 2017-06-30 12:52 | US ---
PROCEDURE: Duplex arterial ultrasound of the right groin. HISTORY: Recent cardiac catheterization. Pain and pulsatile mass in the right groin. Evaluate for pseudoaneurysm or fistula. PHYSICIAN(S): Julio C Gonzalez MD. FINDINGS: There is a large 2.7 x 3.4 cm pseudoaneurysm in the right groin. A discrete neck is noted arising from the right common femoral artery. There is associated hematoma. IMPRESSION: 1. 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
[2017-06-30] MEDS ORDERED: Thrombin Topical 5,000 IU Spray Kit ONE (13:00)
--- NOTE | 2017-06-30 17:12 | US ---
PROCEDURE: Ultrasound-guided right common femoral artery pseudoaneurysm thrombin injection CLINICAL HISTORY: Recent cardiac catheterization. Right common femoral artery pseudoaneurysm. Needs thrombin injection PHYSICIAN(S): Julio C Gonzalez M.D. TECHNIQUE: The relative risks and indications for the procedure were explained to the patient and consent obtained. The patient was placed supine on the stretcher and sonography of the right groin performed. This revealed a large right common femoral artery pseudoaneurysm with a discrete neck. The areas prepped and draped usual sterile fashion. 1 percent xylocaine was used to anesthetize the skin and soft tissues. Ower ultrasound guidance, a 21 gauge needle was advanced into the pseudoaneurysm and its position confirmed. 2000 units of thrombin was injected into the pseudoaneurysm under ultrasound guidance. The pseudoaneurysm immediately thrombosed. The right common femoral artery is patent and normal. IMPRESSION: 1. Ultrasound guided right common femoral artery pseudoaneurysm thrombin injection
--- NOTE | 2017-07-01 07:54 | CP.PCM.PN ---
Subjective - Date & Time of Evaluation Date of Evaluation: 07/01/17 Time of Evaluation: 07:00 - Subjective Subjective: Stable on TCU. No CP or SOB. No syncope. S/P injection of right groin PSA yesterday. V/S noted. 06/29 postural V/S noted. PE: Lungs: clear Cor.: S1S2 Abd.: soft Ext.: no edema Neuro.: alert I/O = 240/450 recorded Labs 05/28 noted. Objective - Vital Signs/Intake and Output Vital Signs (last 24 hours): Temp Pulse Resp BP Pulse Ox 98.2 F 72 20 125/60 97 06/30/17 17:41 06/30/17 17:47 06/30/17 17:41 06/30/17 17:47 06/30/17 17:41 Intake and Output: 07/01/17 07/01/17 06:59 18:59 Intake Total 240 Output Total 450 Balance -210 - Medications Medications: Current Medications Acetaminophen (Tylenol 325mg Tab) 650 mg PO Q4H PRN; Protocol PRN Reason: Pain, moderate (4-7) Last Admin: 06/30/17 14:58 Dose: 650 mg Amlodipine Besylate (Norvasc) 5 mg PO DAILY SUE PRN Reason: Protocol Last Admin: 06/30/17 10:13 Dose: 5 mg Aspirin (Aspirin Chewable) 81 mg PO 0800 SUE PRN Reason: Protocol Last Admin: 06/30/17 08:44 Dose: 81 mg Atorvastatin Calcium (Lipitor) 10 mg PO DIN SUE PRN Reason: Protocol Last Admin: 06/30/17 17:47 Dose: 10 mg Clopidogrel Bisulfate (Plavix) 75 mg PO DAILY SUE PRN Reason: Protocol Last Admin: 06/30/17 10:12 Dose: 75 mg Lisinopril (Zestril) 10 mg PO DAILY SUE PRN Reason: Protocol Last Admin: 06/30/17 10:14 Dose: 10 mg Metoprolol Tartrate (Lopressor) 50 mg PO 0800,1800 SUE PRN Reason: Protocol Last Admin: 06/30/17 17:47 Dose: 50 mg Tamsulosin HCl (Flomax) 0.4 mg PO DAILY SUE PRN Reason: Protocol Last Admin: 06/30/17 10:13 Dose: 0.4 mg - Labs Labs: 06/27/17 06:00 06/27/17 06:00 Assessment and Plan - Assessment and Plan (Free Text) Assessment: Syncope/Orthostatic hypotension CAD/LAD TONY x2 06/18/17 PCI RCA 06/21/17 Right Femoral Artery pseudoaneurysm formation, injected with thrombin 06/30/17 NSTEMI PAF HBP Hypothyroidism GERD BPH/Urinary Retention Dimeinished hearing Cataracts Plan: As per Dr. João Gonzalez. F/U U/S today Resume rehab efforts when cleared by Dr. Gonzalez. Continue cardiac meds
--- NOTE | 2017-07-01 19:39 | US ---
PROCEDURE: Duplex arterial ultrasound of the right groin. HISTORY: Status post right common femoral artery pseudoaneurysm injection. Evaluate for recanalization PHYSICIAN(S): Julio C Gonzalez MD. FINDINGS: The right common femoral artery pseudoaneurysm remains thrombosed. The right common femoral artery and common femoral vein are patent. IMPRESSION: 1. Thrombosed right common femoral artery pseudoaneurysm. No sonographic evidence of recanalization
--- NOTE | 2017-07-02 07:43 | CP.PCM.PN ---
Subjective - Date & Time of Evaluation Date of Evaluation: 07/02/17 Time of Evaluation: 07:00 - Subjective Subjective: Stable on TCU. No CP or SOB. No syncope. S/P injection of right groin PSA. V/S noted. 06/29 postural V/S noted. PE: Lungs: clear Cor.: S1S2 Abd.: soft Ext.: no edema Neuro.: alert I/O = 240/350 recorded Labs 05/28 noted. Right groin art. Doppler study 07/01/17 noted. 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 Objective - Vital Signs/Intake and Output Vital Signs (last 24 hours): Temp Pulse Resp BP Pulse Ox 98.1 F 69 18 113/58 L 96 07/01/17 17:36 07/01/17 17:36 07/01/17 17:36 07/01/17 17:59 07/01/17 17:36 Intake and Output: 07/02/17 07/02/17 06:59 18:59 Intake Total 240 Output Total 350 Balance -110 - Medications Medications: Current Medications Acetaminophen (Tylenol 325mg Tab) 650 mg PO Q4H PRN; Protocol PRN Reason: Pain, moderate (4-7) Last Admin: 06/30/17 14:58 Dose: 650 mg Amlodipine Besylate (Norvasc) 5 mg PO DAILY SUE PRN Reason: Protocol Last Admin: 07/01/17 10:24 Dose: 5 mg Aspirin (Aspirin Chewable) 81 mg PO 0800 SUE PRN Reason: Protocol Last Admin: 07/01/17 08:11 Dose: 81 mg Atorvastatin Calcium (Lipitor) 10 mg PO DIN SUE PRN Reason: Protocol Last Admin: 07/01/17 18:01 Dose: 10 mg Clopidogrel Bisulfate (Plavix) 75 mg PO DAILY SUE PRN Reason: Protocol Last Admin: 07/01/17 10:25 Dose: 75 mg Lisinopril (Zestril) 10 mg PO DAILY SUE PRN Reason: Protocol Last Admin: 07/01/17 10:25 Dose: 10 mg Metoprolol Tartrate (Lopressor) 50 mg PO 0800,1800 SUE PRN Reason: Protocol Last Admin: 07/01/17 17:59 Dose: Not Given Tamsulosin HCl (Flomax) 0.4 mg PO DAILY SUE PRN Reason: Protocol Last Admin: 07/01/17 10:24 Dose: 0.4 mg - Labs Labs: 06/27/17 06:00 06/27/17 06:00 Assessment and Plan - Assessment and Plan (Free Text) Assessment: Syncope/Orthostatic hypotension CAD/LAD TONY x2 06/18/17 PCI RCA 06/21/17 Right Common Femoral Artery pseudoaneurysm formation, injected with thrombin 06/30/17. Thrombosed on F/U Doppler study 07/01/17 NSTEMI PAF HBP Hypothyroidism GERD BPH/Urinary Retention Diminished hearing Cataracts Plan: As per Dr. João Gonzalez. Resume rehab efforts when cleared by Dr. Gonzalez. Continue cardiac meds
--- NOTE | 2017-07-02 08:06 | PN ---
DATE: 07/01/2017 SUBJECTIVE: The patient went for ultrasound of the right groin and followup on hematoma post cardiac cath. We are awaiting this results and we will follow. Physical therapy was held today and waiting for the results of the ultrasound. Bin Nazario MD MTDD
[2017-07-03 06:22] LABS: BASO # 0.01 K/mm3 (0.0-2.0); BASO % 0.2 % (0.0-3.0); EOS # 0.2 (0.0-0.7); EOS % 3.9 % (1.5-5.0); GRAN # 3.61 (1.4-6.5); GRAN % 64.4 % (50.0-68.0); HEMATOCRIT 30.9 % (42.0-52.0); LYMPH # 1.2 (1.2-3.4); MEAN CELL VOLUME 89.3 fl (80.0-105.0); MEAN CORPUSCULAR HEMOGLOBIN 28.6 pg (25.0-35.0); MEAN PLATELET VOLUME 9.5 fl (7.0-11.0); MONO # 0.5 (0.1-0.6); MONO % 9.5 % (1.0-6.0); WHITE BLOOD COUNT 5.6 10^3/ul (4.5-11.0)
[2017-07-03 06:39] LABS: BLOOD UREA NITROGEN 23 mg/dL (7-21); CALCIUM 9.3 mg/dL (8.4-10.5); CARBON DIOXIDE 27 mmol/L (21-33); CHLORIDE 106 mmol/L (98-107); GFR AFRICAN-AMERICAN > 60; GLUCOSE,RANDOM 83 mg/dL (70-110); POTASSIUM 3.9 mmol/L (3.6-5.0); SODIUM 140 mmol/L (132-148)
--- NOTE | 2017-07-03 07:15 | CP.PCM.PN ---
Subjective - Date & Time of Evaluation Date of Evaluation: 07/03/17 Time of Evaluation: 07:00 - Subjective Subjective: Stable on TCU. No CP or SOB. No syncope. S/P injection of right groin PSA. V/S noted. 06/29 postural V/S noted. PE: Lungs: clear Cor.: S1S2 Abd.: soft Ext.: no edema Neuro.: alert Labs noted today. BMP OK Right groin art. Doppler study 07/01/17 noted. 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 Objective - Vital Signs/Intake and Output Vital Signs (last 24 hours): Temp Pulse Resp BP Pulse Ox 97.9 F 62 16 114/60 97 07/03/17 06:00 07/03/17 06:00 07/03/17 06:00 07/03/17 06:00 07/03/17 06:00 - Medications Medications: Current Medications Acetaminophen (Tylenol 325mg Tab) 650 mg PO Q4H PRN; Protocol PRN Reason: Pain, moderate (4-7) Last Admin: 06/30/17 14:58 Dose: 650 mg Amlodipine Besylate (Norvasc) 5 mg PO DAILY SUE PRN Reason: Protocol Last Admin: 07/02/17 11:16 Dose: 5 mg Aspirin (Aspirin Chewable) 81 mg PO 0800 SUE PRN Reason: Protocol Last Admin: 07/02/17 11:15 Dose: 81 mg Atorvastatin Calcium (Lipitor) 10 mg PO DIN SUE PRN Reason: Protocol Last Admin: 07/02/17 17:48 Dose: 10 mg Clopidogrel Bisulfate (Plavix) 75 mg PO DAILY SUE PRN Reason: Protocol Last Admin: 07/02/17 11:16 Dose: 75 mg Lisinopril (Zestril) 10 mg PO DAILY SUE PRN Reason: Protocol Last Admin: 07/02/17 11:16 Dose: 10 mg Metoprolol Tartrate (Lopressor) 50 mg PO 0800,1800 SUE PRN Reason: Protocol Last Admin: 07/02/17 17:48 Dose: 50 mg Tamsulosin HCl (Flomax) 0.4 mg PO DAILY SUE PRN Reason: Protocol Last Admin: 07/02/17 11:16 Dose: 0.4 mg - Labs Labs: 07/03/17 05:15 07/03/17 05:15 Assessment and Plan - Assessment and Plan (Free Text) Assessment: Syncope/Orthostatic hypotension CAD/LAD TONY x2 06/18/17 PCI RCA 06/21/17 Right Common Femoral Artery pseudoaneurysm formation, injected with thrombin 06/30/17. Thrombosed on F/U Doppler study 07/01/17 NSTEMI PAF HBP Hypothyroidism GERD BPH/Urinary Retention Diminished hearing Cataracts Plan: As per Dr. João Gonzalez and Dr. Nazario. Resume rehab efforts when cleared by Dr. Gonzalez. Continue cardiac meds
--- NOTE | 2017-07-04 08:13 | CP.PCM.PN ---
Subjective - Date & Time of Evaluation Date of Evaluation: 07/04/17 Time of Evaluation: 07:00 - Subjective Subjective: Stable on TCU. No CP or SOB. No syncope. S/P injection of right groin PSA. V/S noted. 06/29 postural V/S noted. PE: Lungs: clear Cor.: S1S2 Abd.: soft Ext.: no edema Neuro.: alert Labs noted 07/03. BMP OK Right groin art. Doppler study 07/01/17 noted. 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 Objective - Vital Signs/Intake and Output Vital Signs (last 24 hours): Temp Pulse Resp BP Pulse Ox 98.7 F 60 98 H 124/69 96 07/03/17 16:41 07/04/17 08:04 07/03/17 16:41 07/04/17 08:04 07/03/17 16:41 Intake and Output: 07/04/17 07/04/17 06:59 18:59 Intake Total 240 Balance 240 - Medications Medications: Current Medications Acetaminophen (Tylenol 325mg Tab) 650 mg PO Q4H PRN; Protocol PRN Reason: Pain, moderate (4-7) Last Admin: 06/30/17 14:58 Dose: 650 mg Amlodipine Besylate (Norvasc) 5 mg PO DAILY SUE PRN Reason: Protocol Last Admin: 07/03/17 11:27 Dose: 5 mg Aspirin (Aspirin Chewable) 81 mg PO 0800 SUE PRN Reason: Protocol Last Admin: 07/04/17 08:04 Dose: 81 mg Atorvastatin Calcium (Lipitor) 10 mg PO DIN SUE PRN Reason: Protocol Last Admin: 07/03/17 17:40 Dose: 10 mg Clopidogrel Bisulfate (Plavix) 75 mg PO DAILY SUE PRN Reason: Protocol Last Admin: 07/03/17 11:27 Dose: 75 mg Lisinopril (Zestril) 10 mg PO DAILY SUE PRN Reason: Protocol Last Admin: 07/03/17 11:27 Dose: 10 mg Metoprolol Tartrate (Lopressor) 50 mg PO 0800,1800 SUE PRN Reason: Protocol Last Admin: 07/04/17 08:04 Dose: 50 mg Tamsulosin HCl (Flomax) 0.4 mg PO DAILY SUE PRN Reason: Protocol Last Admin: 07/03/17 11:27 Dose: 0.4 mg - Labs Labs: 07/03/17 05:15 07/03/17 05:15 Assessment and Plan - Assessment and Plan (Free Text) Assessment: Syncope/Orthostatic hypotension CAD/LAD TONY x2 06/18/17 PCI RCA 06/21/17 Right Common Femoral Artery pseudoaneurysm formation, injected with thrombin 06/30/17. Thrombosed on F/U Doppler study 07/01/17 NSTEMI PAF HBP Hypothyroidism GERD BPH/Urinary Retention Diminished hearing Cataracts Plan: As per Dr. João Gonzalez and Dr. Nazario. Continue cardiac meds OOB/PT/Rehab. Home soon with out-pt cardiolgy f/u.
[2017-07-04 10:00] VITALS: BP 125/63
[2017-07-04 10:26] VITALS: PULSE 65; RESP 18; TEMP 97.6; O2SAT 97
== END 2017-07-04 10:58 | disposition home or self-care (01) | DRG 312 ==
LOC: TRCU 16:05
PROVIDERS: ADMIT Internal Medicine; ATTEND Internal Medicine
PROC: F07Z9ZZ Gait Training/Functional Ambulation Treatment (ICD-10-PCS; 2017-06-27)
PROC: F08Z4ZZ Home Management Treatment (ICD-10-PCS; 2017-06-28)
PROC: 3E053GC Introduction of Other Therapeutic Substance into Peripheral Artery, Percutaneous Approach (ICD-10-PCS; principal; 2017-06-30)
DX: I95.1 Orthostatic hypotension (principal); I72.4 Aneurysm of artery of lower extremity; I48.0 Paroxysmal atrial fibrillation; I25.10 Atherosclerotic heart disease of native coronary artery without angina pectoris; N40.1 Benign prostatic hyperplasia with lower urinary tract symptoms; R33.8 Other retention of urine; H26.9 Unspecified cataract; E03.9 Hypothyroidism, unspecified; K21.9 Gastro-esophageal reflux disease without esophagitis; H91.90 Unspecified hearing loss, unspecified ear; I25.2 Old myocardial infarction; Z95.5 Presence of coronary angioplasty implant and graft